=== PATIENT | female | born 1935 | race Caucasian/White ===

== ENCOUNTER 2018-03-25 20:05 | Inpatient (IN) | payer OTHER ==
[~2018-03-25] VITALS: Ht 162.6 cm; Wt 93.4 kg
[~2018-03-25 20:05] MED LIST: ATOR20 PO; Aspir-Low81 MG PO; CEPH500 PO; GINSENG COMPLE1 EACH PO; LOSA25 PO; Multiple Vitam1 EACH PO; OXYC5; PARO20 PO; SYNTHROID25 MCG PO
[2018-03-25 20:48] LABS: BASOPHILS ABSOLUTE AUTO 0.05 K/mm3 (0.00-0.23); BASOPHILS PERCENT AUTO 0 % (0-2); EOSINOPHILS ABSOLUTE AUTO 0.17 K/mm3 (0.00-0.68); EOSINOPHILS PERCENT AUTO 1 % (0-6); Hematocrit 45.7 % (33.0-51.0); IMMATURE GRAN ABSOLUTE AUTO 0.03 K/mm3 (0.00-0.10); IMMATURE GRAN PERCENT AUTO 0 % (0-1); LYMPHOCYTES ABSOLUTE AUTO 1.74 K/mm3 (0.84-5.20); LYMPHOCYTES PERCENT AUTO 14 % (21-46); MONOCYTES ABSOLUTE AUTO 0.85 K/mm3 (0.16-1.47); MONOCYTES PERCENT AUTO 7 % (4-13); Mean Corpuscular HGB 31.6 pg (26.0-34.0); Mean Corpuscular HGB Conc 32.8 g/dL (31.5-36.5); Mean Corpuscular Volume 96 fL (80-100); Mean Platelet Volume 9.6 fL (9.1-12.4); NEUTROPHILS ABSOLUTE AUTO 9.32 K/mm3 (1.96-9.15); NEUTROPHILS PERCENT AUTO 77 % (41-73); Platelet Count 324 K/mm3 (150-400); RDW Coefficient Variation 13.2 % (11.7-14.2); RDW Standard Deviation 47.8 fL (35.1-46.3); Red Blood Cell Count 4.74 M/mm3 (3.80-5.20); White Blood Cell Count 12.16 K/mm3 (4.00-11.30)
[2018-03-25 21:01] LABS: Source, Urine Clean Catch
[2018-03-25 21:06] LABS: Blood, Urine 1+ (Neg); Glucose Qualitative, Urine Neg (Neg); Ketones, Urine 1+ (Neg); Leukocyte Esterase, Urine 1+ (Neg); Nitrite, Urine Neg (Neg); Protein, Urine 2+ (Neg); Specific Gravity, Urine 1.025 (1.003-1.022); Urobilinogen, Urine 1+ (Normal)
[2018-03-25 21:14] LABS: Appearance, Urine Hazy (Clear); Bilirubin, Urine 1+ (Neg); Color, Urine Yellow (P-Yellow)
[2018-03-25 21:15] LABS: Red Blood Cells, Urine 0-2 /hpf (0-2); White Blood Cells, Urine 0-2 /hpf (0-5)
[2018-03-25 21:16] LABS: Bacteria Many /hpf; Hyaline Casts 0-2 /lpf (0-2); Squamous Epithelial Cells Many /hpf (Few)
[2018-03-25 21:23] LABS: Albumin, Blood 4.1 g/dL (3.4-5.0); Albumin/Globulin Ratio 0.9 (0.8-1.8); Bilirubin, Total 0.5 mg/dL (0.1-1.0); Bun/Creatinine Ratio 23.1 (12.0-20.0); Calcium, Blood 10.1 mg/dL (8.5-10.1); Creatinine, Blood 1.08 mg/dL (0.40-1.00); Globulin, Blood 4.6 g/dL (2.2-4.0); Potassium, Blood 4.3 mmol/L (3.5-5.5); Total Protein, Blood 8.7 g/dL (6.4-8.2)
[2018-03-26] MEDS ORDERED: LEVSOD50 PO (10:12)
[2018-03-26] MEDS ORDERED: Hair, Skin & N1 EACH PO (10:12)
[2018-03-26 10:13] LABS: Hematocrit 41.9 % (33.0-51.0); Hemoglobin 13.4 g/dL (11.5-16.0); Mean Corpuscular HGB 31.8 pg (26.0-34.0); Mean Platelet Volume 9.7 fL (9.1-12.4); Platelet Count 267 K/mm3 (150-400); RDW Coefficient Variation 13.5 % (11.7-14.2); Red Blood Cell Count 4.22 M/mm3 (3.80-5.20); White Blood Cell Count 7.49 K/mm3 (4.00-11.30)
[2018-03-26] MEDS ORDERED: [UNRECOGNIZED DRUG - OTHER] PO (10:13)
[2018-03-26 10:28] LABS: Albumin, Blood 3.4 g/dL (3.4-5.0); Albumin/Globulin Ratio 0.8 (0.8-1.8); Bilirubin, Total 0.4 mg/dL (0.1-1.0); Bun/Creatinine Ratio 22.7 (12.0-20.0); Calcium, Blood 9.2 mg/dL (8.5-10.1); Creatinine, Blood 0.97 mg/dL (0.40-1.00); Globulin, Blood 4.1 g/dL (2.2-4.0); Potassium, Blood 4.6 mmol/L (3.5-5.5); Total Protein, Blood 7.5 g/dL (6.4-8.2)
[2018-03-26 10:54] LABS: Mean Corpuscular Volume 99 fL (80-100)
[2018-03-27 04:57] LABS: BASOPHILS ABSOLUTE AUTO 0.01 K/mm3 (0.00-0.23); BASOPHILS PERCENT AUTO 0 % (0-2); EOSINOPHILS ABSOLUTE AUTO 0.25 K/mm3 (0.00-0.68); EOSINOPHILS PERCENT AUTO 5 % (0-6); Hemoglobin 12.1 g/dL (11.5-16.0); IMMATURE GRAN ABSOLUTE AUTO 0.02 K/mm3 (0.00-0.10); IMMATURE GRAN PERCENT AUTO 0 % (0-1); LYMPHOCYTES ABSOLUTE AUTO 1.19 K/mm3 (0.84-5.20); LYMPHOCYTES PERCENT AUTO 25 % (21-46); MONOCYTES ABSOLUTE AUTO 0.52 K/mm3 (0.16-1.47); MONOCYTES PERCENT AUTO 11 % (4-13); Mean Corpuscular HGB 31.8 pg (26.0-34.0); Mean Corpuscular HGB Conc 31.8 g/dL (31.5-36.5); Mean Corpuscular Volume 100 fL (80-100); NEUTROPHILS ABSOLUTE AUTO 2.86 K/mm3 (1.96-9.15); NEUTROPHILS PERCENT AUTO 59 % (41-73); Platelet Count 232 K/mm3 (150-400); RDW Coefficient Variation 13.4 % (11.7-14.2); RDW Standard Deviation 49.2 fL (35.1-46.3); Red Blood Cell Count 3.81 M/mm3 (3.80-5.20); White Blood Cell Count 4.85 K/mm3 (4.00-11.30)
[2018-03-27 05:17] LABS: Alanine Aminotransfer (ALT/SGP 16 U/L (12-78); Albumin, Blood 3.1 g/dL (3.4-5.0); Albumin/Globulin Ratio 0.9 (0.8-1.8); Alk Phos 56 U/L (50-136); Anion Gap 8 mmol/L (6-16); Aspartate Aminotrans (AST/SGOT 18 U/L (12-37); Bilirubin, Total 0.5 mg/dL (0.1-1.0); Blood Urea Nitrogen 15 mg/dL (8-24); Bun/Creatinine Ratio 17.4 (12.0-20.0); CO2, Blood 26 mmol/L (21-32); Calcium, Blood 8.6 mg/dL (8.5-10.1); Chloride, Blood 108 mmol/L (98-108); Creatinine, Blood 0.86 mg/dL (0.40-1.00); Globulin, Blood 3.5 g/dL (2.2-4.0); Glomerular Filtration Rate >60 (60-); Glucose, Blood 119 mg/dL (70-99); Potassium, Blood 3.9 mmol/L (3.5-5.5); Sodium, Blood 142 mmol/L (136-145); Total Protein, Blood 6.6 g/dL (6.4-8.2)
[2018-03-28] MEDS ORDERED: DOCU100 PO (12:35)
== END 2018-03-28 14:37 | disposition home or self-care (01) | DRG 389 ==
LOC: ER 20:05 → MEDS 03-26 00:21
PROVIDERS: Emergency Medicine; Internal Medicine
DX: K56.609 Unspecified intestinal obstruction, unspecified as to partial versus complete obstruction (principal); N17.9 Acute kidney failure, unspecified; I10 Essential (primary) hypertension; E03.9 Hypothyroidism, unspecified; Z79.82 Long term (current) use of aspirin; R73.9 Hyperglycemia, unspecified; R73.03 Prediabetes; E78.5 Hyperlipidemia, unspecified
CPT/HCPCS: 36415; 74176; 74250; 80053; 81001; 82947; 83036; 83690; 85025; 85027; 87086; 96361; 96374; 99285-25; J1650; J2405; J7030

== ENCOUNTER → 2018-10-31 | Outpatient (CLI) | payer OTHER ==
[~2018-10-31] MED LIST changes: +ASPI325 PO; +DOCU100 PO; +Hair, Skin & N1 EACH PO; +LEVSOD50 PO; +MIRALAX119 GM PO; +ONDA4 PO; +TRAM50 PO; +[UNRECOGNIZED DRUG - OTHER] PO
== END | disposition home or self-care (01) ==
LOC: LAB 11:53 → LAB SHORT 11:53
DX: D04.39 Carcinoma in situ of skin of other parts of face (principal)
CPT/HCPCS: 88305

== ENCOUNTER 2020-10-15 11:39 | Emergency (ER) | payer OTHER ==
[~2020-10-15] VITALS: Ht 162.6 cm; Wt 98.0 kg
[~2020-10-15 11:39] MED LIST changes: +LEVSOD25 PO; -LEVSOD50 PO
[2020-10-15] MEDS ORDERED: ELIQUIS5 M2 PO (13:32)
== END 2020-10-15 13:30 | disposition home or self-care (01) ==
LOC: ER 11:39
DX: I82.811 Embolism and thrombosis of superficial veins of right lower extremity (principal); I82.401 Acute embolism and thrombosis of unspecified deep veins of right lower extremity; I10 Essential (primary) hypertension; E03.9 Hypothyroidism, unspecified; Z79.82 Long term (current) use of aspirin; Z79.899 Other long term (current) drug therapy; Z88.2 Allergy status to sulfonamides; Z91.09 Other allergy status, other than to drugs and biological substances; Z88.5 Allergy status to narcotic agent
CPT/HCPCS: 99283

== ENCOUNTER 2020-10-27 08:46 | Day surgery (SDC) | payer OTHER ==
[~2020-10-27] VITALS: Ht 162.6 cm; Wt 97.9 kg
[~2020-10-27 08:46] MED LIST changes: +ELIQUIS5 M2 PO
[2020-10-27] MEDS ORDERED: ELIQUIS2.5 MG PO (09:39)
--- NOTE | 2020-10-27 11:44 | NUR ---
10/27/20 1144 Linda Diaz S PT. DENIED ANY PAIN BUT WHILE WALKING OUT TO CAR PT. VERBALIZED HAVING SOME CRAMPING & STATED "THAT'S PROBABLY NORMAL." PT. VERBALIZED IT BEING TOLERABLE. PT. INSTRUCTED THAT IT WAS PROBABLY SOME AIR IN HER COLON & EVENTUALLY IT WOULD ABSORB & SHE COULD JUST PASS OUT AIR IF FELT THE NEED.
== END 2020-10-27 11:15 | disposition home or self-care (01) ==
LOC: ORSCSDS 08:46
PROVIDERS: Surgery
PROC: 0DBH8ZX Excision of Cecum, Via Natural or Artificial Opening Endoscopic, Diagnostic (ICD-10-PCS; principal; 2020-10-27 10:30)
PROC: 0DBL8ZX Excision of Transverse Colon, Via Natural or Artificial Opening Endoscopic, Diagnostic (ICD-10-PCS; principal; 2020-10-27 10:30)
PROC: 0DBM8ZX Excision of Descending Colon, Via Natural or Artificial Opening Endoscopic, Diagnostic (ICD-10-PCS; principal; 2020-10-27 10:30)
DX: R19.4 Change in bowel habit (principal); K52.9 Noninfective gastroenteritis and colitis, unspecified; R10.30 Lower abdominal pain, unspecified; K21.9 Gastro-esophageal reflux disease without esophagitis; E11.9 Type 2 diabetes mellitus without complications; E78.5 Hyperlipidemia, unspecified; I10 Essential (primary) hypertension; E03.9 Hypothyroidism, unspecified; F41.8 Other specified anxiety disorders; E66.01 Morbid (severe) obesity due to excess calories; Z68.37 Body mass index [BMI] 37.0-37.9, adult; Z79.899 Other long term (current) drug therapy; G47.33 Obstructive sleep apnea (adult) (pediatric); Z79.01 Long term (current) use of anticoagulants
CPT/HCPCS: 82947; 88305; J2704

== ENCOUNTER 2020-11-15 05:56 | Inpatient (IN) | payer OTHER ==
[~2020-11-15] VITALS: Ht 162.6 cm; Wt 99.7 kg
[~2020-11-15 05:56] MED LIST changes: +ELIQUIS2.5 MG PO
[2020-11-15 06:28] LABS: BASOPHILS ABSOLUTE AUTO 0.03 K/mm3 (0.00-0.23); BASOPHILS PERCENT AUTO 0 % (0-2); EOSINOPHILS ABSOLUTE AUTO 0.23 K/mm3 (0.00-0.68); EOSINOPHILS PERCENT AUTO 3 % (0-6); Hematocrit 41.7 % (33.0-51.0); Hemoglobin 13.8 g/dL (11.5-16.0); IMMATURE GRAN ABSOLUTE AUTO 0.03 K/mm3 (0.00-0.10); IMMATURE GRAN PERCENT AUTO 0 % (0-1); LYMPHOCYTES ABSOLUTE AUTO 1.44 K/mm3 (0.84-5.20); LYMPHOCYTES PERCENT AUTO 16 % (21-46); MONOCYTES ABSOLUTE AUTO 0.73 K/mm3 (0.16-1.47); MONOCYTES PERCENT AUTO 8 % (4-13); Mean Corpuscular HGB 32.7 pg (26.0-34.0); Mean Corpuscular HGB Conc 33.1 g/dL (31.5-36.5); Mean Corpuscular Volume 99 fL (80-100); Mean Platelet Volume 10.1 fL (9.1-12.4); NEUTROPHILS ABSOLUTE AUTO 6.53 K/mm3 (1.96-9.15); NEUTROPHILS PERCENT AUTO 73 % (41-73); Platelet Count 255 K/mm3 (150-400); RDW Coefficient Variation 13.3 % (11.7-14.2); RDW Standard Deviation 48.1 fL (35.1-46.3); Red Blood Cell Count 4.22 M/mm3 (3.80-5.20); White Blood Cell Count 8.99 K/mm3 (4.00-11.30)
[2020-11-15 06:42] LABS: Albumin, Blood 3.8 g/dL (3.4-5.0); Albumin/Globulin Ratio 0.9 (0.8-1.8); Bilirubin, Total 0.5 mg/dL (0.1-1.0); Bun/Creatinine Ratio 19.4 (12.0-20.0); Calcium, Blood 9.8 mg/dL (8.5-10.1); Creatinine, Blood 0.98 mg/dL (0.40-1.00); Globulin, Blood 4.2 g/dL (2.2-4.0)
--- NOTE | 2020-11-15 13:55 | NUR ---
PT ARRIVED AT AT 1300. PT HAD IMMEDIATE EMESIS OF 400ML UPON ARRIVAL, CONNECTED NG TO LOW INT SUCTION WITH RETURN OF 400ML WITHIN 20 MINUTES. PT DENIES PAIN AND DENIES NAUSEA ONCE RECONNECTED AND EMESIS OCCURED. SHE IS CURRENTLY RESTING IN BED WITH CALL LIGHT IN PLACE. PLACED ON 3L NASAL CANULA, PT DESATS WHILE SLEEPING ON 2L CURRENTLY AT 94%, CONT BIOX IN PLACE. PT IS AA0X4, ORIENTED TO UNIT. CALL LIGHT IN REACH.
--- NOTE | 2020-11-15 16:29 | NUR ---
NO ACUTE CHANGES SINCE ARRIVAL TO UNIT PT REPORTS NAUSEA AND PAIN BETTER SINCE NG TUBE RECONNECTED. DAUGHTER AT BEDSIDE. PT REQUESTS THAT ONE OF HER DAUGHTERS BE PRESENT WHILE SPEAKING TO PROVIDERS TO HELP WITH UNDERSTANDING. PT HAS BEEN SLEEPING FREQUENTLY DURING SHIFT, REMAINS ON 3L VIA NC WITH OCCASIONAL APNIC PERIODS.
--- NOTE | 2020-11-16 04:23 | NUR ---
SHIFT SUMMARY PT CONTINUES TO DENY ABD PAIN AND NAUSEA. NGT WITH 350 CC DARK BROWN LIQ OUTPUT. ABD STILL MODERATELY DISTENDED AND FIRM. NPO AND IVF INFUSING PER ORDERS. 1 ASSIST TO RESTROOM. 2L VIA NC TO MAINTAIN SATS ABOVE 90% WHILE SLEEPING. CONT BIOX IN PLACE. CALL LIGHT WITHIN REACH.
[2020-11-16 04:53] LABS: Hematocrit 42.5 % (33.0-51.0); Hemoglobin 13.7 g/dL (11.5-16.0); Mean Corpuscular HGB 32.5 pg (26.0-34.0); Mean Corpuscular HGB Conc 32.2 g/dL (31.5-36.5); Mean Corpuscular Volume 101 fL (80-100); Mean Platelet Volume 10.3 fL (9.1-12.4); Platelet Count 224 K/mm3 (150-400); RDW Coefficient Variation 13.8 % (11.7-14.2); RDW Standard Deviation 50.9 fL (35.1-46.3); Red Blood Cell Count 4.21 M/mm3 (3.80-5.20); White Blood Cell Count 4.72 K/mm3 (4.00-11.30)
[2020-11-16 05:02] LABS: International Normalized Ratio 0.97; Prothrombin Time Results 10.5 Sec (9.7-11.5)
[2020-11-16 05:12] LABS: Alanine Aminotransfer (ALT/SGP 24 U/L (12-78); Albumin, Blood 3.4 g/dL (3.4-5.0); Albumin/Globulin Ratio 0.8 (0.8-1.8); Alk Phos 61 U/L (50-136); Anion Gap 4 mmol/L (6-16); Aspartate Aminotrans (AST/SGOT 17 U/L (12-37); Bilirubin, Total 0.4 mg/dL (0.1-1.0); Blood Urea Nitrogen 18 mg/dL (8-24); CO2, Blood 27 mmol/L (21-32); Calcium, Blood 8.9 mg/dL (8.5-10.1); Chloride, Blood 108 mmol/L (98-108); Globulin, Blood 4.2 g/dL (2.2-4.0); Glomerular Filtration Rate >60 (60-); Glucose, Blood 201 mg/dL (70-99); Potassium, Blood 4.5 mmol/L (3.5-5.5); Sodium, Blood 139 mmol/L (136-145); Total Protein, Blood 7.6 g/dL (6.4-8.2)
[2020-11-16 07:38] LABS: BAND PERCENT MAN 14 % (0-8); BASOPHILS PERCENT MAN 0 % (0-2); EOSINOPHILS ABSOLUTE MAN 0.04 K/mm3 (0.00-0.68); EOSINOPHILS PERCENT MAN 1 % (0-6); LYMPHOCYTES ABSOLUTE MAN 0.66 K/mm3 (0.84-5.20); LYMPHOCYTES PERCENT MAN 14 % (21-46); MONOCYTES ABSOLUTE MAN 0.94 K/mm3 (0.16-1.47); MONOCYTES PERCENT MAN 20 % (4-13); NEUTROPHILS ABSOLUTE MAN 3.06 K/mm3 (1.96-9.15); SEG NEUTROPHILS PERCENT MAN 51 % (41-73); TOTAL CELLS COUNTED 100
--- NOTE | 2020-11-16 18:26 | NUR ---
SHIFT SUMMARY PT HAS BEEN INTERMITTENTLY CONFUSED DURING SHIFT. WILL ASK QUESTIONS THAT HAVE JUST BEEN ANSWERED AND ANSWERS SOME QUESTIONS INAPPROPRIATLY AT TIMES. SHE ATTEMPTS TO GET OOB WITHOUT USING CALL LIGHT AND HAS ASKED WHY SHE IS HERE. CONFUSION HAS BEEN INCREASING THIS EVENING SINCE DAUGHTER LEFT. DAUGHTERS REQUEST TO BE IN TO SEE PATIENT MORE AND HELP KEEP HER ORIENTED. SHE HAS HAD 375 OUT OF CLEAR BROWN FLUID WITH SOME BROWN CHUNKS IN NG TUBE. PT UP TO BSC AND VOIDS. NO FLATUS OR BM AT THIS TIME, FLUIDS INFUSING PER EMAR. PT MEDICATED FOR PAIN X1. PLAN IS TO CONTINUE WITH NPO AND AWAIT RETURN OF BOWEL FUNCTION.
--- NOTE | 2020-11-17 04:13 | NUR ---
SHIFT SUMMARY MEDICATED X1 THIS SHIFT FOR MILD ABD PAIN. PT DENIES FLATUS, BUT DOES REPORT BURPING. MINIMAL BROWN LIQ OUTPUT IN NGT. ABD REMAINS MODERATELY DISTENDED AND FIRM. 1 ASSIST TO BSC. IVF INFUSING PER ORDERS. PLAN TO CONT BOWEL REST.
[2020-11-17 05:10] LABS: Hematocrit 41.6 % (33.0-51.0); Hemoglobin 13.3 g/dL (11.5-16.0); Mean Corpuscular HGB 32.4 pg (26.0-34.0); Mean Corpuscular Volume 102 fL (80-100); Mean Platelet Volume 10.2 fL (9.1-12.4); Platelet Count 202 K/mm3 (150-400); RDW Coefficient Variation 13.6 % (11.7-14.2); RDW Standard Deviation 51.8 fL (35.1-46.3); White Blood Cell Count 3.09 K/mm3 (4.00-11.30)
[2020-11-17 05:34] LABS: Alanine Aminotransfer (ALT/SGP 18 U/L (12-78); Albumin, Blood 3.2 g/dL (3.4-5.0); Albumin/Globulin Ratio 0.8 (0.8-1.8); Alk Phos 51 U/L (50-136); Anion Gap 3 mmol/L (6-16); Aspartate Aminotrans (AST/SGOT 9 U/L (12-37); Bilirubin, Total 0.4 mg/dL (0.1-1.0); Blood Urea Nitrogen 18 mg/dL (8-24); Bun/Creatinine Ratio 21.2 (12.0-20.0); CO2, Blood 31 mmol/L (21-32); Calcium, Blood 8.7 mg/dL (8.5-10.1); Chloride, Blood 108 mmol/L (98-108); Creatinine, Blood 0.85 mg/dL (0.40-1.00); Globulin, Blood 4.1 g/dL (2.2-4.0); Glomerular Filtration Rate >60 (60-); Glucose, Blood 195 mg/dL (70-99); Magnesium, Blood 1.9 mg/dL (1.6-2.4); Phosphorus, Blood 2.3 mg/dL (2.5-4.9); Potassium, Blood 4.1 mmol/L (3.5-5.5); Sodium, Blood 142 mmol/L (136-145); Total Protein, Blood 7.3 g/dL (6.4-8.2)
[2020-11-17 06:36] LABS: BAND PERCENT MAN 19 % (0-8); BASOPHILS PERCENT MAN 0 % (0-2); EOSINOPHILS ABSOLUTE MAN 0.03 K/mm3 (0.00-0.68); EOSINOPHILS PERCENT MAN 1 % (0-6); LYMPHOCYTES ABSOLUTE MAN 0.67 K/mm3 (0.84-5.20); LYMPHOCYTES PERCENT MAN 22 % (21-46); MONOCYTES ABSOLUTE MAN 0.67 K/mm3 (0.16-1.47); MONOCYTES PERCENT MAN 22 % (4-13); NEUTROPHILS ABSOLUTE MAN 1.69 K/mm3 (1.96-9.15); SEG NEUTROPHILS PERCENT MAN 36 % (41-73); TOTAL CELLS COUNTED 100
--- NOTE | 2020-11-17 07:31 | NUR ---
pt sleeping snoring
--- NOTE | 2020-11-17 09:10 | NUR ---
pt back from small bowel follow thru zofran given held the po meds pt denies flatus abd dist tight hypo bt's to keep ngt clamped until 1300
--- NOTE | 2020-11-17 09:52 | NUR ---
pt visiting with daughter
--- NOTE | 2020-11-17 10:20 | NUR ---
pt had lg emesis around the ngt est 700 ml pt stated the pain is better 3/10
--- NOTE | 2020-11-17 12:12 | NUR ---
pt reporting inc anxiety wanting to walk in hallway
--- NOTE | 2020-11-17 15:33 | NUR ---
pt had some leaking from the end of the ngt re fixed and cleaned up talked with family re test and pt stated she is still feeling ok
--- NOTE | 2020-11-17 18:02 | NUR ---
earlier pt back fro 2nd abd xray of follow thru had another lg emesis around the ngt est 1000 ml put back to sx had 500 out into the cannister family awaiting dr mcnulty 0.5 mg dilaudid given for pain pt resting
--- NOTE | 2020-11-17 19:20 | NUR ---
talked with pt and her daughter re talking with dr mcnulty he will be by in the am after her abd xray with results
--- NOTE | 2020-11-18 07:18 | NUR ---
SHIFT SUMMARY S/P SBO, A/O W/ PERIODIC SEMI CONFUSED STATES WHEN WAKING UP, REORIENTS WELL, MOD ABD DISTENTION BUT APPEARS TO BE IMPROVING, SMALL BM THIS SHIFT, VOIDING WELL, PT NPO T/O THE SHIFT, DENIES PAIN. NO ACUTE EVENTS THIS SHIFT. CALL LIGHT IN REACH, BED ALARM ON DUE TO PT BEING IMPULSIVE AND HAVING MULTIPLE LINES/TUBES/CORDS. REPORT GIVEN TO DAY RN.
--- NOTE | 2020-11-18 14:05 | NUR ---
1210 NG CLAMPED PER ORDER
--- NOTE | 2020-11-18 17:42 | NUR ---
summary pt denies any nausea or abd pain, adelina clear liquids. NG clamped. pt one person assist to bathroom, has had liquid brown stools.
--- NOTE | 2020-11-19 04:36 | NUR ---
SHIFT SUMMARY PT ADMITTED FOR SBO, NON SURGICAL. NO ACUTE CHANGES OVERNIGHT. PT DENIES ABD PAIN BUT HAD SOME TYLENOL AT BEDTIME FOR COMFORT. PT TOLERATING PO INTAKE, DENIES NAUSEA AND VOMITING. ABD REMAIN MODERATELY DISTENDED AND NON TENDER. NORM ACTIVE BT. PT HAD 3 (SMALL) LIQ GREEN BM T/O SHIFT. USES BSC W/ 1 PERSON ASSIT TO ASSIST WITH LINES/NG TUBES. NG TUBE REMAIN CLAMPED OVERNIGHT, INTACT. AOX3. USE CALL LIGHT APPROPRIATELY AND ANS QUESTIONS APPROPRIATELY. SHE SLEPT MOST OF THE NIGHT. USES 2-5L 02 T/O SHIFT. CONTINIOUS BIOX IN PLACED. HX SLEEP APNEA. CALL LIGHT WITHIN REACH. WILL CONTINUE TO MONITOR AND PASS REPORT TO ONCOMING NURSE.
[2020-11-19 04:51] LABS: Hematocrit 38.9 % (33.0-51.0); Hemoglobin 12.4 g/dL (11.5-16.0); Mean Corpuscular HGB 32.3 pg (26.0-34.0); Mean Corpuscular HGB Conc 31.9 g/dL (31.5-36.5); Mean Corpuscular Volume 101 fL (80-100); Mean Platelet Volume 10.1 fL (9.1-12.4); Platelet Count 187 K/mm3 (150-400); RDW Coefficient Variation 13.5 % (11.7-14.2); RDW Standard Deviation 50.7 fL (35.1-46.3); Red Blood Cell Count 3.84 M/mm3 (3.80-5.20); White Blood Cell Count 6.15 K/mm3 (4.00-11.30)
[2020-11-19 05:47] LABS: Anion Gap 4 mmol/L (6-16); Blood Urea Nitrogen 25 mg/dL (8-24); Bun/Creatinine Ratio 32.2 (12.0-20.0); CO2, Blood 31 mmol/L (21-32); Calcium, Blood 8.8 mg/dL (8.5-10.1); Chloride, Blood 105 mmol/L (98-108); Creatinine, Blood 0.78 mg/dL (0.40-1.00); Glomerular Filtration Rate >60 (60-); Glucose, Blood 190 mg/dL (70-99); Potassium, Blood 3.2 mmol/L (3.5-5.5); Sodium, Blood 140 mmol/L (136-145)
[2020-11-19 06:31] LABS: BAND PERCENT MAN 5 % (0-8); BASOPHILS ABSOLUTE MAN 0.06 K/mm3 (0.00-0.23); BASOPHILS PERCENT MAN 1 % (0-2); EOSINOPHILS PERCENT MAN 5 % (0-6); LYMPHOCYTES ABSOLUTE MAN 1.16 K/mm3 (0.84-5.20); LYMPHOCYTES PERCENT MAN 19 % (21-46); MONOCYTES ABSOLUTE MAN 0.49 K/mm3 (0.16-1.47); MONOCYTES PERCENT MAN 8 % (4-13); MYELOCYTE ABSOLUTE MAN 0.06 K/mm3 (0.00-0.00); MYELOCYTE PERCENT MAN 1 % (0-0); NEUTROPHILS ABSOLUTE MAN 4.05 K/mm3 (1.96-9.15); SEG NEUTROPHILS PERCENT MAN 61 % (41-73); TOTAL CELLS COUNTED 100
--- NOTE | 2020-11-19 10:54 | NUR ---
DR. BASS TELEPHONED AND SAID IT WAS OKAY FOR THE PATIENTS NG TUBE TO COME OUT. PATIENTS NG TUBE CAME OUT AND WAS WNL. PATIENT TOLERATED IT WELL. SHE IS CURRENTLY LAYING IN BED WITH CALL LIGHT IN REACH.
[2020-11-19] MEDS ORDERED: Acetaminophen650 M1 PO (12:34)
--- NOTE | 2020-11-19 12:46 | NUR ---
DISCHARGE NOTE: PATIENT AND PATIENTS DAUGHTER WERE EDUCATED ON DISCHARGE INSTRUCTIONS. PATIENT AND DAUGHTER BOTH VERBALIZED UNDERSTANDING OF INSTRUCTIONS. NEITHER OF THEM HAD FURTHER QUESTIONS. PATIENT IS ALERT AND ORIENTED X4. VS ARE WNL AND IS ON RA. PATIENTS PAIN IS MANAGED WITH PO TYLENOL. SHE HAS VOIDED AND HAD A FEW BOWEL MOVEMENTS. PATIENT IS TOLERATING PO INTAKE WELL. SHE IS GATHERING HER ITEMS IN HER ROOM AND IS GETTING DRESSED FOR DISCHARGE. IV WAS TAKEN OUT AND WAS WNL. PATIENT WILL BE WHEELCHAIRED OUT TO ANOTHER FAMILY [employer] CAR WHO WILL DRIVE HER HOME. PATIENT STATED SHE WILL USE THE CALL LIGHT WHEN READY TO LEAVE AND HER RIDE IS HERE.
== END 2020-11-19 13:00 | disposition home health service (06) | DRG 389 ==
LOC: ER 05:56 → SURS 11:02
PROVIDERS: Emergency Medicine; Family Medicine; Internal Medicine; Nurse Practitioner Acute Care; ADMIT Internal Medicine
PROC: 0D9670Z Drainage of Stomach with Drainage Device, Via Natural or Artificial Opening (ICD-10-PCS; principal; 2020-11-15)
DX: K56.600 Partial intestinal obstruction, unspecified as to cause (principal); I82.811 Embolism and thrombosis of superficial veins of right lower extremity; I10 Essential (primary) hypertension; M54.40 Lumbago with sciatica, unspecified side; E03.9 Hypothyroidism, unspecified; R73.9 Hyperglycemia, unspecified; K59.00 Constipation, unspecified; G47.33 Obstructive sleep apnea (adult) (pediatric); I16.0 Hypertensive urgency; Z96.641 Presence of right artificial hip joint; Z91.19 Patient's noncompliance with other medical treatment and regimen; Z98.49 Cataract extraction status, unspecified eye; Z90.49 Acquired absence of other specified parts of digestive tract; Z98.890 Other specified postprocedural states; Z88.2 Allergy status to sulfonamides; Z88.5 Allergy status to narcotic agent; Z91.040 Latex allergy status; Z91.048 Other nonmedicinal substance allergy status; Z79.01 Long term (current) use of anticoagulants; Z79.899 Other long term (current) drug therapy; Z88.6 Allergy status to analgesic agent
CPT/HCPCS: 36415; 74177; 74250; 80048; 80053; 83690; 83735; 84100; 85025; 85610; 93005; 93010; 94762; 96374-59; 96375; 96376; 97116; 97162; 97530; 99285-25; A9270; J0360; J1170; J2270; J2405; J3010; J7030; Q9967

== ENCOUNTER 2020-12-23 08:32 | Day surgery (SDC) | payer OTHER ==
[~2020-12-23] VITALS: Ht 162.6 cm; Wt 94.0 kg
[~2020-12-23 08:32] MED LIST changes: +Acetaminophen650 M1 PO
--- NOTE | 2020-12-23 09:17 | NUR ---
Ambulatory in Day Surgery History, Chart, Medications and Allergies reviewed before start of procedure. Lungs clear T/O to Auscultation. Patient confirms NPO status and agrees with scheduled surgery. Pre-Op teaching done. Pt verbalizes understanding. Patient States Post-Procedure ride home has been arranged.
--- NOTE | 2020-12-23 14:23 | NUR ---
PATIENT REPORTS 0/10 PAIN, LOWER ABDOMEN "BURNING". ONE NORCO PO GIVEN PER ORDERS AND ICE PACK PROVIDED AND ABDOMINAL BINDER.
--- NOTE | 2020-12-23 14:25 | NUR ---
Discharge instructions reviewed with patient. Patient verbalizes understanding. Copy given to patient to take home. Discharged via wheelchair to private car for ride home. ALL BELONGINGS RETURNED TO PATIENTS, INCLUDING GLASSES.
== END 2020-12-23 23:00 | disposition home or self-care (01) ==
LOC: ORSCMMR 08:32
PROVIDERS: Surgery
PROC: 0WQF0ZZ Repair Abdominal Wall, Open Approach (ICD-10-PCS; principal; 2020-12-23 10:00)
DX: K43.2 Incisional hernia without obstruction or gangrene (principal); I10 Essential (primary) hypertension; G47.33 Obstructive sleep apnea (adult) (pediatric); K21.9 Gastro-esophageal reflux disease without esophagitis; E11.9 Type 2 diabetes mellitus without complications; E03.9 Hypothyroidism, unspecified; E66.9 Obesity, unspecified; Z68.35 Body mass index [BMI] 35.0-35.9, adult; Z79.899 Other long term (current) drug therapy
CPT/HCPCS: 82947; A9270; J0690; J1100; J2250; J2370; J2405; J2704; J3010; J7120

== ENCOUNTER → 2021-05-22 | Outpatient (CLI) | payer OTHER ==
[2021-05-22 14:13] LABS: Bun/Creatinine Ratio 18.6 (12.0-20.0); Calcium, Blood 9.6 mg/dL (8.5-10.1); Creatinine, Blood 1.02 mg/dL (0.40-1.00); Potassium, Blood 4.5 mmol/L (3.5-5.5)
== END | disposition home or self-care (01) ==
LOC: LAB SHORT 13:52
PROVIDERS: Physician Assistant Medical
DX: M25.519 Pain in unspecified shoulder (principal)
CPT/HCPCS: 80048; 82550; 85651

== ENCOUNTER 2021-06-02 03:55 | Inpatient (IN) | payer OTHER ==
[~2021-06-02] VITALS: Ht 254 cm; Wt 94.7 kg
[2021-06-02] MEDS ORDERED: PRED5 PO (04:11)
[2021-06-02 04:26] LABS: BASOPHILS ABSOLUTE AUTO 0.03 K/mm3 (0.00-0.23); BASOPHILS PERCENT AUTO 0 % (0-2); EOSINOPHILS ABSOLUTE AUTO 0.13 K/mm3 (0.00-0.68); EOSINOPHILS PERCENT AUTO 1 % (0-6); Hematocrit 44.9 % (33.0-51.0); IMMATURE GRAN ABSOLUTE AUTO 0.04 K/mm3 (0.00-0.10); IMMATURE GRAN PERCENT AUTO 0 % (0-1); LYMPHOCYTES PERCENT AUTO 25 % (21-46); MONOCYTES ABSOLUTE AUTO 0.96 K/mm3 (0.16-1.47); MONOCYTES PERCENT AUTO 9 % (4-13); Mean Corpuscular HGB 32.1 pg (26.0-34.0); Mean Corpuscular HGB Conc 33.4 g/dL (31.5-36.5); Mean Corpuscular Volume 96 fL (80-100); NEUTROPHILS PERCENT AUTO 65 % (41-73); Platelet Count 259 K/mm3 (150-400); RDW Coefficient Variation 13.6 % (11.7-14.2); RDW Standard Deviation 48.6 fL (35.1-46.3); Red Blood Cell Count 4.67 M/mm3 (3.80-5.20); White Blood Cell Count 11.36 K/mm3 (4.00-11.30)
[2021-06-02 04:41] LABS: Albumin, Blood 3.6 g/dL (3.4-5.0); Albumin/Globulin Ratio 0.8 (0.8-1.8); Bilirubin, Total 0.7 mg/dL (0.1-1.0); Bun/Creatinine Ratio 25.7 (12.0-20.0); Calcium, Blood 10.3 mg/dL (8.5-10.1); Creatinine, Blood 0.97 mg/dL (0.40-1.00); Globulin, Blood 4.5 g/dL (2.2-4.0); Total Protein, Blood 8.1 g/dL (6.4-8.2)
[2021-06-02 05:25] LABS: Source, Urine Clean Catch
[2021-06-02 05:31] LABS: Bilirubin, Urine Neg (Neg); Blood, Urine Neg (Neg); Glucose Qualitative, Urine Neg (Neg); Ketones, Urine Neg (Neg); Leukocyte Esterase, Urine Neg (Neg); Nitrite, Urine Neg (Neg); Protein, Urine 2+ (Neg); Specific Gravity, Urine 1.015 (1.003-1.022); Urobilinogen, Urine NORM (Normal)
[2021-06-02 05:37] LABS: Appearance, Urine Clear (Clear); Color, Urine Yellow (P-Yellow)
[2021-06-02 05:39] LABS: Bacteria Few /hpf; Red Blood Cells, Urine 0-2 /hpf (0-2); Squamous Epithelial Cells Many /hpf (Few); White Blood Cells, Urine 0-2 /hpf (0-5)
--- NOTE | 2021-06-02 14:31 | NUR ---
DAUGHTER AT BEDSIDE. WENT TO PLACE DNR WRIST BAND ON PATIENT. PT EXPRESSED THAT THEY WOULD LIKE TO HAVE CPR IF NEEDED BUT WOULD NOT LIKE TO BE PLACED ON CLIENT EVALUATOR LIFE SUPPORT. [facility] STATUS CHANGED PER PT'S WISHES.
--- NOTE | 2021-06-02 18:03 | NUR ---
SHIFT SUMMARY PT ADMITTED FOR SBO VS ILEUS. PAIN IN HER ABD AND NAUSEA IN THE ED. NG TUBE INSERTED INTO HER L NOSTRIL WHICH SHE IS TOLERATING WELL. PT REPORTS NO PAIN OR NAUSEA SINCE HAVING THE NG TUBE INSERTED. OUTPUT FROM NG HAS TURNED FROM GREEN TO BROWN. SMALL BOWEL FOLLOW THROUGH SCHEDULED FOR THE AM. VSS. WILL REPORT TO SAKINA URIAS.
[2021-06-03 04:16] LABS: Hematocrit 43.2 % (33.0-51.0); Hemoglobin 13.9 g/dL (11.5-16.0); Mean Corpuscular HGB 32.4 pg (26.0-34.0); Mean Corpuscular HGB Conc 32.2 g/dL (31.5-36.5); Mean Platelet Volume 9.9 fL (9.1-12.4); Platelet Count 219 K/mm3 (150-400); RDW Standard Deviation 51.8 fL (35.1-46.3); Red Blood Cell Count 4.29 M/mm3 (3.80-5.20); White Blood Cell Count 7.07 K/mm3 (4.00-11.30)
[2021-06-03 04:24] LABS: Mean Corpuscular Volume 101 fL (80-100)
[2021-06-03 04:37] LABS: Bun/Creatinine Ratio 27.9 (12.0-20.0); Calcium, Blood 9.2 mg/dL (8.5-10.1); Creatinine, Blood 0.97 mg/dL (0.40-1.00); Potassium, Blood 4.1 mmol/L (3.5-5.5)
--- NOTE | 2021-06-03 16:31 | NUR ---
NG TUBE DC'D AT THIS TIME. PT TOLERATED WELL.
--- NOTE | 2021-06-03 16:50 | NUR ---
SHIFT SUMMARY PT RECEIVED SMALL BOWEL FOLLOW THROUGH THIS AM. NO BLOCKAGE WAS FOUND AND THE PT HAD A LARGE BM. NG TUBE DC'D AND THE PATIENT IS TOLERATING A CLEAR LIQUID DIET AT THIS TIME. NO C/O NAUSEA OR PAIN. WILL POSSIBLY DC TOMORROW. VSS. WILL REPORT TO SAKINA URIAS.
--- NOTE | 2021-06-04 05:09 | NUR ---
SHIFT SUMMARY ROLF IS TOLERATING CLEAR LIQUID DIET, ESPECIALLY ICE CHIPS. DENIES ABD PAIN OR NAUSEA. SMALL BOWEL FOLLOW THROUGH PERFORMED TODAY, NO OBSTRUCTION NOTED. PT WITH HX OF DVT, WEARING SCD'S FOR PROPHYLAXIS. ROOM AIR. IV IN RIGHT HAND WNL, INFUSING. WILL CALL FOR ASSISTANCE WHEN NEEDED. PLEASANT WITH STAFF. WILL CONTINUE TO MONITOR.
--- NOTE | 2021-06-04 14:31 | NUR ---
DISHCARGE SUMMARY PT A/O X4, VSS, TOLERATING DIET, DISCUSSED DISCHARGE INFORMATION c PT AND ANSWERED ALL QUESTIONS, PROVIDED PRIMARY CARE CONTACT FOR FOLLOW UP WELL CONTACT INFORMATION HERE SHOULD ADDITIONAL QUESTIONS ARISE. IV ACCESS REMOVED AND NO OTHER IV ACCESS DEVICES IN PLACE. PT ESCORTED OUT VIA WC AND DRIVEN HOME BY HER DAUGHTER WITH ALL HER PERSONAL POSSESSIONS.
== END 2021-06-04 14:23 | disposition home or self-care (01) | DRG 390 ==
LOC: ER 03:55 → ERHOLD 06:16 → SURS 06:16
PROVIDERS: Internal Medicine; Student in an Organized Health Care Education/Training Program; ADMIT Family Medicine
DX: K56.690 Other partial intestinal obstruction (principal); E03.9 Hypothyroidism, unspecified; I10 Essential (primary) hypertension; M35.3 Polymyalgia rheumatica; Z66 Do not resuscitate; Z88.2 Allergy status to sulfonamides; Z91.040 Latex allergy status; Z90.49 Acquired absence of other specified parts of digestive tract; Z98.890 Other specified postprocedural states; Z98.49 Cataract extraction status, unspecified eye; Z79.899 Other long term (current) drug therapy; Z79.82 Long term (current) use of aspirin; K21.9 Gastro-esophageal reflux disease without esophagitis; D72.828 Other elevated white blood cell count
CPT/HCPCS: 36415; 71045; 74177; 74250; 80048; 80053; 81001; 83690; 85025; 85027; 87086; 93005; 93010; 96374; 96375; 99285-25; C9113; J2270; J2405; J3010; J7030; Q9967

== ENCOUNTER → 2021-09-18 | Outpatient (CLI) | payer OTHER ==
[~2021-09-18] MED LIST changes: +PRED5 PO
== END | disposition home or self-care (01) ==
LOC: LAB SHORT 16:05 → LAB 16:05
DX: L03.011 Cellulitis of right finger (principal)
CPT/HCPCS: 87070; 87077; 87147; 87186; 87205

== ENCOUNTER 2021-10-03 10:04 | Emergency (ER) | payer OTHER ==
[~2021-10-03] VITALS: Ht 160 cm; Wt 90.7 kg
[2021-10-03 11:19] LABS: BASOPHILS ABSOLUTE AUTO 0.02 K/mm3 (0.00-0.23); BASOPHILS PERCENT AUTO 0 % (0-2); EOSINOPHILS ABSOLUTE AUTO 0.18 K/mm3 (0.00-0.68); EOSINOPHILS PERCENT AUTO 3 % (0-6); Hematocrit 37.6 % (33.0-51.0); Hemoglobin 12.3 g/dL (11.5-16.0); IMMATURE GRAN ABSOLUTE AUTO 0.01 K/mm3 (0.00-0.10); IMMATURE GRAN PERCENT AUTO 0 % (0-1); LYMPHOCYTES ABSOLUTE AUTO 1.13 K/mm3 (0.84-5.20); LYMPHOCYTES PERCENT AUTO 20 % (21-46); MONOCYTES ABSOLUTE AUTO 0.62 K/mm3 (0.16-1.47); MONOCYTES PERCENT AUTO 11 % (4-13); Mean Corpuscular HGB 32.3 pg (26.0-34.0); Mean Corpuscular HGB Conc 32.7 g/dL (31.5-36.5); Mean Corpuscular Volume 99 fL (80-100); Mean Platelet Volume 9.8 fL (9.1-12.4); NEUTROPHILS ABSOLUTE AUTO 3.78 K/mm3 (1.96-9.15); NEUTROPHILS PERCENT AUTO 66 % (41-73); Platelet Count 269 K/mm3 (150-400); RDW Coefficient Variation 13.9 % (11.7-14.2); RDW Standard Deviation 49.9 fL (35.1-46.3); Red Blood Cell Count 3.81 M/mm3 (3.80-5.20); White Blood Cell Count 5.74 K/mm3 (4.00-11.30)
[2021-10-03 11:43] LABS: Albumin, Blood 3.3 g/dL (3.4-5.0); Albumin/Globulin Ratio 0.8 (0.8-1.8); Bilirubin, Total 0.4 mg/dL (0.1-1.0); Bun/Creatinine Ratio 27.9 (12.0-20.0); Calcium, Blood 9.4 mg/dL (8.5-10.1); Creatinine, Blood 0.97 mg/dL (0.40-1.00); Globulin, Blood 3.9 g/dL (2.2-4.0); Potassium, Blood 4.2 mmol/L (3.5-5.5); Total Protein, Blood 7.2 g/dL (6.4-8.2)
== END 2021-10-03 12:34 | disposition home or self-care (01) ==
LOC: ER 10:04
PROVIDERS: Physician Assistant
DX: N81.4 Uterovaginal prolapse, unspecified (principal); E11.9 Type 2 diabetes mellitus without complications; I10 Essential (primary) hypertension; E03.9 Hypothyroidism, unspecified; Z79.899 Other long term (current) drug therapy; Z91.040 Latex allergy status; Z88.2 Allergy status to sulfonamides; Z91.09 Other allergy status, other than to drugs and biological substances; Z79.52 Long term (current) use of systemic steroids
CPT/HCPCS: 36415; 80053; 85025

== ENCOUNTER → 2021-12-01 | Outpatient (CLI) | payer OTHER ==
[2021-12-01 19:20] LABS: Source, Urine Clean Catch
[2021-12-01 19:25] LABS: Appearance, Urine Turbid (Clear); Bilirubin, Urine Neg (Neg); Blood, Urine Neg (Neg); Color, Urine Yellow (P-Yellow); Glucose Qualitative, Urine Neg (Neg); Ketones, Urine 1+ (Neg); Leukocyte Esterase, Urine Neg (Neg); Nitrite, Urine Neg (Neg); Protein, Urine 1+ (Neg); Specific Gravity, Urine 1.025 (1.003-1.022); Urobilinogen, Urine NORM (Normal)
[2021-12-01 19:43] LABS: Bacteria Many /hpf; Mucus Mod (0-Heavy); Red Blood Cells, Urine 0-2 /hpf (0-2); Squamous Epithelial Cells Many /hpf (Few); White Blood Cells, Urine 0-2 /hpf (0-5)
== END | disposition home or self-care (01) ==
LOC: LAB SHORT 15:30 → LAB 15:30
PROVIDERS: Student in an Organized Health Care Education/Training Program
DX: R10.9 Unspecified abdominal pain (principal)
CPT/HCPCS: 81001; 87086

== ENCOUNTER 2023-05-21 10:15 | Emergency (ER) | payer OTHER ==
[~2023-05-21] VITALS: Ht 162.6 cm; Wt 99.8 kg
[2023-05-21 10:50] VITALS: BP 150/7
== END 2023-05-21 14:44 | disposition home or self-care (01) ==
LOC: ER 10:15
DX: M25.561 Pain in right knee (principal); I10 Essential (primary) hypertension; E03.9 Hypothyroidism, unspecified; M17.11 Unilateral primary osteoarthritis, right knee; W01.0XXA Fall on same level from slipping, tripping and stumbling without subsequent striking against object, initial encounter; Z88.2 Allergy status to sulfonamides; Z91.09 Other allergy status, other than to drugs and biological substances; Z91.040 Latex allergy status; Z79.890 Hormone replacement therapy; Z79.52 Long term (current) use of systemic steroids; Z79.899 Other long term (current) drug therapy
CPT/HCPCS: 73562-RT; 73610; 93971; 99284-25

== ENCOUNTER → 2024-01-24 | Outpatient (CLI) | payer OTHER ==
[~2024-01-24] MED LIST changes: +ASPI81CH PO; +ATOR40TA PO; +CLOP75 PO; +FUROSEMIDE20 MG PO; +HYDHCL25 PO; +JARDIANCE10 MG PO; +MIRT15 PO; +Potassium Chlo20 ME1 PO
== END | disposition home or self-care (01) ==
LOC: LAB 13:50 → LAB SHORT 13:50
DX: R10.9 Unspecified abdominal pain (principal)
CPT/HCPCS: 87086

== ENCOUNTER → 2024-02-04 | Outpatient (CLI) | payer OTHER ==
[2024-02-04 18:51] LABS: Source, Urine Clean Catch
[2024-02-04 19:27] LABS: Appearance, Urine Cloudy (Clear); Bilirubin, Urine Neg (Neg); Blood, Urine Neg (Neg); Color, Urine Yellow (P-Yellow); Glucose Qualitative, Urine Neg (Neg); Ketones, Urine Neg (Neg); Leukocyte Esterase, Urine 2+ (Neg); Nitrite, Urine Neg (Neg); Protein, Urine 1+ (Neg); Urobilinogen, Urine NORM (Normal)
[2024-02-04 19:50] LABS: Bacteria Many /hpf; Red Blood Cells, Urine 0-2 /hpf (0-2); Squamous Epithelial Cells Few /hpf (Few)
== END ==
LOC: LAB SHORT 18:48 → LAB 18:48
PROVIDERS: Student in an Organized Health Care Education/Training Program
DX: R10.9 Unspecified abdominal pain (principal); Z87.442 Personal history of urinary calculi
CPT/HCPCS: 81001; 87086

== ENCOUNTER → 2024-02-12 | Outpatient (CLI) | payer OTHER | END | disposition home or self-care (01) | LOC: LAB 14:43 → LAB SHORT 14:43 | DX: R30.0 Dysuria (principal) | CPT/HCPCS: 87086 ==

== ENCOUNTER → 2024-04-11 | Outpatient (CLI) | payer OTHER | LOC: LAB SHORT 16:00 → LAB 16:00 | DX: R82.90 Unspecified abnormal findings in urine (principal) | CPT/HCPCS: 87086 ==

== ENCOUNTER → 2024-04-18 | Outpatient (CLI) | payer OTHER ==
[2024-04-18 14:44] LABS: Source, Urine Clean Catch
[2024-04-18 14:53] LABS: Bacteria Rare /hpf; Red Blood Cells, Urine Not Seen /hpf (0-2); Squamous Epithelial Cells Mod /hpf (Few)
== END | disposition home or self-care (01) ==
LOC: LAB 14:42 → LAB SHORT 14:42
PROVIDERS: Internal Medicine
DX: M53.3 Sacrococcygeal disorders, not elsewhere classified (principal); R35.0 Frequency of micturition
CPT/HCPCS: 81015; 87086

== ENCOUNTER 2024-06-01 19:40 | Emergency (ER) | payer OTHER ==
[~2024-06-01] VITALS: Ht 162.6 cm; Wt 90.7 kg
[2024-06-01 19:52] VITALS: BP 139/79
[2024-06-01] MEDS ORDERED: HYDROcodone 5-APAP 325 TAB PO ONE (20:05)
[2024-06-01] MEDS ORDERED: Ketorolac Tromethamine 30mg Vial IM ONE (20:05)
[2024-06-01] MEDS ORDERED: Mobic15 MG PO (21:50)
== END 2024-06-01 22:09 | disposition home or self-care (01) ==
LOC: ER 19:40
DX: M54.50 Low back pain, unspecified (principal); G89.29 Other chronic pain; I10 Essential (primary) hypertension; E03.9 Hypothyroidism, unspecified; Z91.040 Latex allergy status; Z88.2 Allergy status to sulfonamides; Z91.048 Other nonmedicinal substance allergy status; Z79.899 Other long term (current) drug therapy; Z79.890 Hormone replacement therapy; Z79.82 Long term (current) use of aspirin
CPT/HCPCS: 96372; 99283-25; A9270; J1885

== ENCOUNTER 2024-07-07 18:11 | Inpatient (IN) | payer OTHER ==
[~2024-07-07] VITALS: Ht 162.6 cm; Wt 93.0 kg
[~2024-07-07 18:11] MED LIST changes: -LOSA25 PO; +LOSARTAN POTAS100 M1 PO; +Mobic15 MG PO
[2024-07-07 18:54] LABS: BASOPHILS ABSOLUTE AUTO 0.03 K/mm3 (0.00-0.23); BASOPHILS PERCENT AUTO 0 % (0-2); EOSINOPHILS PERCENT AUTO 3 % (0-6); Hematocrit 38.3 % (33.0-51.0); Hemoglobin 12.1 g/dL (11.5-16.0); IMMATURE GRAN ABSOLUTE AUTO 0.02 K/mm3 (0.00-0.10); IMMATURE GRAN PERCENT AUTO 0 % (0-1); LYMPHOCYTES ABSOLUTE AUTO 0.77 K/mm3 (0.84-5.20); LYMPHOCYTES PERCENT AUTO 11 % (21-46); MONOCYTES ABSOLUTE AUTO 0.71 K/mm3 (0.16-1.47); MONOCYTES PERCENT AUTO 10 % (4-13); Mean Corpuscular HGB 32.8 pg (26.0-34.0); Mean Corpuscular HGB Conc 31.6 g/dL (31.5-36.5); Mean Corpuscular Volume 104 fL (80-100); Mean Platelet Volume 9.9 fL (9.1-12.4); NEUTROPHILS ABSOLUTE AUTO 5.57 K/mm3 (1.96-9.15); NEUTROPHILS PERCENT AUTO 76 % (41-73); Platelet Count 218 K/mm3 (150-400); RDW Coefficient Variation 14.4 % (11.7-14.2); RDW Standard Deviation 54.5 fL (35.1-46.3); Red Blood Cell Count 3.69 M/mm3 (3.80-5.20)
[2024-07-07 18:59] LABS: Source, Urine Clean Catch
[2024-07-07 19:01] LABS: Appearance, Urine Hazy (Clear); Bilirubin, Urine Neg (Neg); Blood, Urine 1+ (Neg); Color, Urine Yellow (P-Yellow); Glucose Qualitative, Urine Neg (Neg); Ketones, Urine Neg (Neg); Leukocyte Esterase, Urine 3+ (Neg); Nitrite, Urine Neg (Neg); Protein, Urine 2+ (Neg); Specific Gravity, Urine 1.025 (1.003-1.022); Urobilinogen, Urine NORM (Normal)
[2024-07-07 19:12] LABS: Albumin, Blood 3.6 g/dL (3.4-5.0); Albumin/Globulin Ratio 0.9 (0.8-1.8); Bilirubin, Total 0.3 mg/dL (0.1-1.0); Bun/Creatinine Ratio 16.6 (12.0-20.0); Calcium, Blood 9.6 mg/dL (8.5-10.1); Creatinine, Blood 1.81 mg/dL (0.40-1.00); Globulin, Blood 3.9 g/dL (2.2-4.0); Potassium, Blood 4.9 mmol/L (3.5-5.5); Total Protein, Blood 7.5 g/dL (6.4-8.2)
[2024-07-07 19:21] LABS: Bacteria Many /hpf; Squamous Epithelial Cells Few /hpf (Few)
[2024-07-07 19:47] LABS: CORONAVIRUS COVID-19 AG Negative (NEGATIVE); INFLUENZA A AG Negative (NEGATIVE); INFLUENZA B AG Negative (NEGATIVE)
[2024-07-07] MEDS ORDERED: Lactated Ringer's 1,000 ML IV ONE (21:00)
[2024-07-07] MEDS ORDERED: Acetaminophen 325 MG TABLET PO PRN (22:10)
[2024-07-07] MEDS ORDERED: CefTRIAXone Sodium 1,000 MG in NS 100 ML IV ONE (22:10)
[2024-07-07] MEDS ORDERED: FLU VACC TS2024-25(6MOS UP)/PF 45 MCG/0.5 ML SYRINGE IM ONE (22:15)
[2024-07-07 23:28] VITALS: BP 123/90
[2024-07-08] MEDS ORDERED: NS 250 ML IV PRN (00:05)
--- NOTE | 2024-07-08 00:38 | NUR ---
TRANSFER SUMMARY: PT AOX4 WITH SLIGHT CONFUSION. ABLE TO STAND PIVOT FROM GURNEY INTO HOSPITAL BED. ABLE TO ANSWER APPROPRIATELY AND MAKE NEEDS KNOWN. HAS A SMALL PRESSURE ULCER ON THE COCCYX, MEPILEX IN PLACE AND PROVIDER NOTIFIED. PT IS VERY PLEASANT AND COOPERATIVE IN CARE. TOLERATING MEDS WELL. PT ORIENTED TO ROOM, RESTING IN BED, CALL LIGHT IN REACH, BED IN LOWEST POSITION. CONTINUING CARE.
[2024-07-08 01:03] LABS: BASOPHILS ABSOLUTE AUTO 0.03 K/mm3 (0.00-0.23); BASOPHILS PERCENT AUTO 1 % (0-2); EOSINOPHILS ABSOLUTE AUTO 0.17 K/mm3 (0.00-0.68); EOSINOPHILS PERCENT AUTO 3 % (0-6); Hematocrit 35.6 % (33.0-51.0); Hemoglobin 11.7 g/dL (11.5-16.0); IMMATURE GRAN ABSOLUTE AUTO 0.02 K/mm3 (0.00-0.10); IMMATURE GRAN PERCENT AUTO 0 % (0-1); LYMPHOCYTES ABSOLUTE AUTO 1.15 K/mm3 (0.84-5.20); LYMPHOCYTES PERCENT AUTO 18 % (21-46); MONOCYTES ABSOLUTE AUTO 0.69 K/mm3 (0.16-1.47); MONOCYTES PERCENT AUTO 11 % (4-13); Mean Corpuscular HGB 33.5 pg (26.0-34.0); Mean Corpuscular HGB Conc 32.9 g/dL (31.5-36.5); Mean Corpuscular Volume 102 fL (80-100); Mean Platelet Volume 9.9 fL (9.1-12.4); NEUTROPHILS ABSOLUTE AUTO 4.23 K/mm3 (1.96-9.15); NEUTROPHILS PERCENT AUTO 67 % (41-73); Platelet Count 197 K/mm3 (150-400); RDW Coefficient Variation 14.3 % (11.7-14.2); Red Blood Cell Count 3.49 M/mm3 (3.80-5.20); White Blood Cell Count 6.29 K/mm3 (4.00-11.30)
[2024-07-08 01:31] LABS: Alanine Aminotransfer (ALT/SGP 14 U/L (12-78); Albumin, Blood 3.2 g/dL (3.4-5.0); Albumin/Globulin Ratio 0.8 (0.8-1.8); Alk Phos 63 U/L (50-136); Anion Gap 11 mmol/L (3-11); Aspartate Aminotrans (AST/SGOT 15 U/L (12-37); Bilirubin, Total 0.3 mg/dL (0.1-1.0); Blood Urea Nitrogen 26 mg/dL (8-24); Bun/Creatinine Ratio 16.2 (12.0-20.0); CO2, Blood 23 mmol/L (21-32); Calcium, Blood 9.2 mg/dL (8.5-10.1); Chloride, Blood 114 mmol/L (98-108); Cholesterol 200 mg/dL (50-200); Globulin, Blood 3.8 g/dL (2.2-4.0); Glomerular Filtration Rate 31 (60-); Glucose, Blood 147 mg/dL (70-99); HDL Cholesterol 67 mg/dL (>39); LDL/HDL RATIO 1.5; Low Density Lipoprotein Chol 103 mg/dL (0-110); Potassium, Blood 4.2 mmol/L (3.5-5.5); Sodium, Blood 144 mmol/L (136-145); Triglycerides 148 mg/dL (30-160); Very Low Density Lipoprot Chol 29 mg/dL (6-32)
[2024-07-08] MEDS ORDERED: Lactated Ringer's 1,000 ML IV SCH (02:00)
[2024-07-08] MEDS ORDERED: NYSTOP15 GM TOP (03:06)
[2024-07-08] MEDS ORDERED: BUPROPION XL150 M1 PO (03:06)
[2024-07-08] MEDS ORDERED: NEURONTIN300 MG PO (03:07)
[2024-07-08] MEDS ORDERED: HYDROCODONE-AC1 EA19 PO (03:09)
[2024-07-08 04:23] VITALS: BP 152/90
--- NOTE | 2024-07-08 05:09 | NUR ---
SHIFT SUMMARY: PT AOX4 WITH SLIGHT CONFUSION. SMALL R SIDED DEFICIT BUT NOT VERY NOTICEABLE. PT SATTING 95 ON 2L OF O2. DENIES CHEST PAIN AND ONLY ENDORSES SOME SOB ON EXERTION. ABLE TO STAND PIVOT TO BEDSIDE COMMODE WITH 1PA. CAN PERFORM OWN ADLS. WAS ABLE TO DRINK SOME WATER AND HAD HALF A SANDWICH BEFORE BEING MADE NPO ~0100. STATES BEING THIRSTY AND HUNGRY BUT OTHERWISE DENIES ANY PAIN OR DISCOMFORT. PT TOLERATING MEDS WELL, RESTING IN BED, BED IN LOWEST POSITION, CALL LIGHT IN REACH. CONTINUING CARE.
[2024-07-08] MEDS ORDERED: HyDROXyzine HCl 25 MG Tab PO PRN (05:30)
[2024-07-08] MEDS ORDERED: HYDROcodone 5-APAP 325 TAB PO PRN (05:30)
[2024-07-08] MEDS ORDERED: Levothyroxine Sodium 0.025 MG Tab PO SCH (06:00)
[2024-07-08] MEDS ORDERED: Insulin Regular 100 UNIT/ML 10ML Vial SC SCH (06:00)
[2024-07-08 07:32] VITALS: BP 137/98
[2024-07-08] MEDS ORDERED: buPROPion HCL 150 MG TAB.SR.12H PO SCH (09:00)
[2024-07-08] MEDS ORDERED: PARoxetine HCl 20 MG Tab PO SCH (09:00)
[2024-07-08] MEDS ORDERED: Lactobacil 2-S.Thermo-Bifido 1 1 Cap PO SCH (09:00)
[2024-07-08] MEDS ORDERED: Enoxaparin 30 MG/0.3 ML SYR SC SCH (09:00)
[2024-07-08] MEDS ORDERED: Aspirin 81 MG Chew PO SCH (09:00)
[2024-07-08] MEDS ORDERED: Gabapentin 100 MG Cap PO SCH (09:00)
[2024-07-08] MEDS ORDERED: Empagliflozin 10 MG TAB PO SCH (09:00)
[2024-07-08] MEDS ORDERED: Atorvastatin 40 MG Tab PO SCH (09:00)
[2024-07-08] MEDS ORDERED: Miconazole Nitrate 2% 85 GM PWD TOP SCH (09:00)
[2024-07-08] MEDS ORDERED: Clopidogrel Bisulfate 75 MG Tab PO SCH (09:00)
[2024-07-08 12:01] VITALS: BP 129/90
[2024-07-08 15:57] VITALS: BP 132/84
[2024-07-08] MEDS ORDERED: Insulin Human Lispro 100 Units/ML 3ML Syringe SC SCH (16:30)
--- NOTE | 2024-07-08 18:51 | NUR ---
SUMMARY- PT AAOX4. FORGETFUL. THIS RN AND PT HAD EXTENSIVE TALK REGARDING PT'S CAREPLAN AND PLAN ALONG WITH PT'S STATUS. PT IS X1 ASSIST. ON 2.5L. BL=RA. NO COMPLAINTS OF PAIN. PT REMINDED TO TURN Q2 HRS AND OFFLOAD WEIGHT DUE TO ULCER ON COCCYX.
[2024-07-08 20:13] VITALS: BP 128/71
[2024-07-08] MEDS ORDERED: CefTRIAXone Sodium 1,000 MG in NS 100 ML IV SCH (21:00)
[2024-07-08] MEDS ORDERED: Mirtazapine 15 MG Tab PO SCH (21:00)
[2024-07-09] VITALS (7 sets, daily range): BP systolic 126–152; BP diastolic 84–101
[2024-07-09 05:38] LABS: Bun/Creatinine Ratio 14.8 (12.0-20.0); Calcium, Blood 9.6 mg/dL (8.5-10.1); Creatinine, Blood 1.55 mg/dL (0.40-1.00); Potassium, Blood 4.9 mmol/L (3.5-5.5)
[2024-07-09] MEDS ORDERED: NS 1,000 ML IV SCH (12:05)
--- NOTE | 2024-07-09 13:07 | NUR ---
1305- THIS RN NOTIFIED TLAANG PT HAD A 6 BEAT RUN OF SVT. PT IS ASYMPTOMATIC. VITALS TAKEN. NO NEW ORDERS.
--- NOTE | 2024-07-09 18:48 | NUR ---
SUMMARY- AAOX4. X1 ASSIST TO BSC. PT DENIES ANY PAIN. PT ON 2.5L. BL=RA. PT HAD 6 BEAT RUN OF SVT. MD YARBROUGHAAJOSE LUIS AWARE. PT ASYMPTOMATIC.
[2024-07-10 00:24] VITALS: BP 149/90
[2024-07-10 04:22] VITALS: BP 126/101
--- NOTE | 2024-07-10 07:12 | NUR ---
SHIFT SUMMARY PT LYING IN BED WATCHING TV. PT GOT UP TO BEDSIDE COMMODE, THEN BACK TO BED. PT SLEEPING COMFORTABLY. PT UP TO BEDSIDE COMMODE AGAIN, STANDING STRONGER. PT DESATTED TO 86%, BUT RETURNED TO 91% PROMPTLY. APPROX 0440, PT HAD 8-BEAT RUN OF VTACH, ASYMPTOMATIC. DR. BRYANT NOTIFIED. WILL RELAY TO DAY SHIFT.
[2024-07-10 07:39] VITALS: BP 139/105
[2024-07-10] MEDS ORDERED: Metoprolol Succinate 25 MG TABCR PO SCH (09:00)
[2024-07-10 09:05] LABS: Albumin, Blood 3.1 g/dL (3.4-5.0); Anion Gap 13 mmol/L (3-11); Blood Urea Nitrogen 26 mg/dL (8-24); CO2, Blood 24 mmol/L (21-32); Calcium, Blood 9.1 mg/dL (8.5-10.1); Chloride, Blood 109 mmol/L (98-108); Creatinine, Blood 1.73 mg/dL (0.40-1.00); Glomerular Filtration Rate 28 (60-); Glucose, Blood 128 mg/dL (70-99); Phosphorus, Blood 3.5 mg/dL (2.5-4.9); Potassium, Blood 4.7 mmol/L (3.5-5.5); Sodium, Blood 141 mmol/L (136-145)
[2024-07-10 11:12] VITALS: BP 135/81
[2024-07-10 15:15] VITALS: BP 112/80
--- NOTE | 2024-07-10 16:33 | NUR ---
PT HAS BEEN AO AND COOPERAITVE OF CARE. PT IS ABLE TO MAKE NEEDS KNOWN AND IS A ONE PERSON TO BSC. PT 2L O2 CURRENTLY. PT WAS UP IN CHAIR FOR A GOOD PORTION OF THE DAY AND IS NOW RESTING IN BED. CALL LIGHT IS WITHIN REACH WILL CONTINUE TO MONITOR.
[2024-07-10] MEDS ORDERED: NS 1,000 ML IV SCH (20:00)
[2024-07-11 05:35] LABS: Anion Gap 13 mmol/L (3-11); Blood Urea Nitrogen 34 mg/dL (8-24); Bun/Creatinine Ratio 21.2 (12.0-20.0); CO2, Blood 22 mmol/L (21-32); Calcium, Blood 9.5 mg/dL (8.5-10.1); Chloride, Blood 110 mmol/L (98-108); Glomerular Filtration Rate 31 (60-); Glucose, Blood 149 mg/dL (70-99); Phosphorus, Blood 3.7 mg/dL (2.5-4.9); Potassium, Blood 4.3 mmol/L (3.5-5.5); Sodium, Blood 141 mmol/L (136-145)
--- NOTE | 2024-07-11 06:57 | NUR ---
SHIFT SUMMARY PT UP IN CHAIR AT START OF SHIFT, WATCHING TV. AFTER EVENING MEDICATION PASS, PT GOT INTO BED FOR THE NIGHT. NOW SLEEPING PEACEFULLY. 2230 PT URINE SPECEMIN COLLECTED. 100, SPECEMIN SENT TO LAB. PT SLEPT FOR DURATION OF SHIFT. SHE HAS BEEN PLEASANT AND COOPERATIVE WITH HER CARE. CALL LIGHT IN REACH.
[2024-07-11 07:11] VITALS: BP 117/68
[2024-07-11] MEDS ORDERED: Metoprolol Succinate 50 MG TABCR PO SCH (09:00)
[2024-07-11 11:45] VITALS: BP 98/85
[2024-07-11 15:56] VITALS: BP 116/80
--- NOTE | 2024-07-11 19:24 | NUR ---
SHIFT SUMMARY PATIENT A/OX4 THIS SHIFT, ABLE TO MAKE NEEDS KNOWN. PLEASANT AND COOPERATIVE WITH CARE. TITRATED OFF OF OXYGEN THIS SHIFT, TOLERATING ROOM AIR WITH SPO2 ABOVE 90%. CONTINUOUS PULSE OX IN PLACE. WOUND CARE ORDERS RECEIVED THIS SHIFT FROM DR. PEÑA FOR PRESSURE INJURY TO COCCYX. WOUND CARE PROVIDED PER ORDER. TELEMETRY IN PLACE, NO EVENTS NOTED. PATIENT'S FAMILY AT BEDSIDE THROUGHOUT THE SHIFT. NO OTHER CONCERNS AT THIS TIME. REPORT GIVEN TO [employer] SUPERVISOR RN.
[2024-07-11 21:50] VITALS: BP 111/69
[2024-07-12 02:02] VITALS: BP 123/103
--- NOTE | 2024-07-12 05:29 | NUR ---
SHIFT SUMMARY NOC PT A/O X 4. PLEASANT AND COOPERATIVE WITH CARE. VSS. HS CBG 151 CNI. AT BEDTIME PT SATS DROPPED INTO MID 80'S, AND PT AGREED TO WEAR PRN O2 3L/NC FOR SLEEP AND SPO2 >94%. PT ON TELE SINUS IN 90'S. PT VOIDING REGULARLY WITH 1PA/FWW TO BATHROOM. MEPILEX ON STAGE 2 PRESSURE INJURY TO COCCYX C/D/I. PT EXPECTTED TO DISCHARGE HOME TODAY. PT CURRENTLY RESTING WITH BED IN LOWEST POSITION, AND CALL LIGHT WITHIN REACH.
[2024-07-12 06:27] LABS: Alanine Aminotransfer (ALT/SGP 13 U/L (12-78); Albumin/Globulin Ratio 0.8 (0.8-1.8); Alk Phos 65 U/L (50-136); Anion Gap 11 mmol/L (3-11); Aspartate Aminotrans (AST/SGOT 16 U/L (12-37); Bilirubin, Total 0.3 mg/dL (0.1-1.0); Blood Urea Nitrogen 33 mg/dL (8-24); Bun/Creatinine Ratio 19.8 (12.0-20.0); CO2, Blood 24 mmol/L (21-32); Calcium, Blood 9.3 mg/dL (8.5-10.1); Chloride, Blood 112 mmol/L (98-108); Creatinine, Blood 1.67 mg/dL (0.40-1.00); Free Thyroxine 1.04 ng/dL (0.70-1.60); Globulin, Blood 3.7 g/dL (2.2-4.0); Glomerular Filtration Rate 29 (60-); Glucose, Blood 134 mg/dL (70-99); Potassium, Blood 4.5 mmol/L (3.5-5.5); Sodium, Blood 142 mmol/L (136-145); Total Protein, Blood 6.7 g/dL (6.4-8.2)
[2024-07-12 07:40] VITALS: BP 128/92
[2024-07-12 11:22] VITALS: BP 107/72
[2024-07-12] MEDS ORDERED: METO50ER PO (13:25)
[2024-07-12] MEDS ORDERED: ATOR40TA PO (13:25)
--- NOTE | 2024-07-12 14:05 | NUR ---
DISCHARGE NOTE PATIENT A/OX3, ABLE TO MAKE NEEDS KNOWN. PLEASANT AND COOPERATIVE WITH CARE. DAUGHTER AT BEDSIDE DURING DISCHARGE INSTRUCTIONS. PLAN TO FOLLOW UP WITH [facility] WITHIN 1 WEEK, NEW MEDICATIONS DISCUSSED AND PATIENT INFORMED ON STOP TO PREVIOUS HOME MEDICATIONS WELL. NEW MEDS FAXED TO [facility] PER PATIENT REQUEST. IV, TELEMETRY, AND CONTINUOUS PULSE OX REMOVED PRIOR TO DISCHARGE. SPO2 ABOVE 90% ON ROOM AIR. INSTRUCTED ON WOUND CARE DIRECTIONS. PATIENT AND FAMILY WITH NO QUESTIONS AT TIME OF DISCHARGE. ASSISTED TO FAMILY VEHICLE VIA WHEELCHAIR BY [facility] STAFF.
== END 2024-07-12 14:23 | disposition home or self-care (01) | DRG 280 ==
LOC: ER 18:11 → MEDS 22:09 → ERHOLD 22:09 → MEDS 23:15
PROVIDERS: Hospitalist; Internal Medicine; Student in an Organized Health Care Education/Training Program; ADMIT Student in an Organized Health Care Education/Training Program
DX: I35.0 Nonrheumatic aortic (valve) stenosis (principal); I50.23 Acute on chronic systolic (congestive) heart failure; I21.4 Non-ST elevation (NSTEMI) myocardial infarction; I13.0 Hypertensive heart and chronic kidney disease with heart failure and stage 1 through stage 4 chronic kidney disease, or unspecified chronic kidney disease; N17.9 Acute kidney failure, unspecified; N30.00 Acute cystitis without hematuria; Z28.21 Immunization not carried out because of patient refusal; I48.0 Paroxysmal atrial fibrillation; Z68.35 Body mass index [BMI] 35.0-35.9, adult; G62.9 Polyneuropathy, unspecified; G47.33 Obstructive sleep apnea (adult) (pediatric); M35.3 Polymyalgia rheumatica; E03.9 Hypothyroidism, unspecified; I69.398 Other sequelae of cerebral infarction; R26.89 Other abnormalities of gait and mobility; G89.29 Other chronic pain; M54.9 Dorsalgia, unspecified; N18.32 Chronic kidney disease, stage 3b; B96.20 Unspecified Escherichia coli [E. coli] as the cause of diseases classified elsewhere; E66.01 Morbid (severe) obesity due to excess calories; F32.A Depression, unspecified; F41.9 Anxiety disorder, unspecified; Z96.649 Presence of unspecified artificial hip joint; R73.9 Hyperglycemia, unspecified; Z88.2 Allergy status to sulfonamides; Z91.040 Latex allergy status; Z91.048 Other nonmedicinal substance allergy status; Z79.02 Long term (current) use of antithrombotics/antiplatelets; Z79.899 Other long term (current) drug therapy; Z79.82 Long term (current) use of aspirin; Z90.49 Acquired absence of other specified parts of digestive tract; Z98.49 Cataract extraction status, unspecified eye
CPT/HCPCS: 36415; 71045; 76770; 80048; 80053; 80061; 80069; 81001; 82570; 82947; 83735; 83880; 84300; 84439; 84443; 84484; 85025; 87077; 87086; 87186; 87428-QW; 93005; 93010; 94762; 97110; 97116; 97161; 97165; 97530; 97535; 99285-25; A9270; C8929; J0696; J1650; J1815; J7030; J7050; J7120; Q9957

== ENCOUNTER 2024-09-02 06:08 | Inpatient (IN) | payer OTHER ==
[~2024-09-02] VITALS: Ht 162.6 cm; Wt 91.8 kg
[~2024-09-02 06:08] MED LIST changes: +BUPROPION XL150 M1 PO; +HYDROCODONE-AC1 EA19 PO; +METO50ER PO; +NEURONTIN300 MG PO; +NYSTOP15 GM TOP
[2024-09-02 06:52] LABS: Albumin, Blood 3.2 g/dL (3.4-5.0); Albumin/Globulin Ratio 0.9 (0.8-1.8); Bilirubin, Total 0.2 mg/dL (0.1-1.0); Calcium, Blood 8.7 mg/dL (8.5-10.1); Creatinine, Blood 1.35 mg/dL (0.40-1.00); Globulin, Blood 3.4 g/dL (2.2-4.0); Total Protein, Blood 6.6 g/dL (6.4-8.2)
[2024-09-02 08:02] LABS: BASOPHILS ABSOLUTE AUTO 0.03 K/mm3 (0.00-0.23); BASOPHILS PERCENT AUTO 1 % (0-2); EOSINOPHILS ABSOLUTE AUTO 0.24 K/mm3 (0.00-0.68); EOSINOPHILS PERCENT AUTO 4 % (0-6); Hematocrit 32.4 % (33.0-51.0); Hemoglobin 10.5 g/dL (11.5-16.0); IMMATURE GRAN ABSOLUTE AUTO 0.02 K/mm3 (0.00-0.10); IMMATURE GRAN PERCENT AUTO 0 % (0-1); LYMPHOCYTES ABSOLUTE AUTO 1.09 K/mm3 (0.84-5.20); LYMPHOCYTES PERCENT AUTO 18 % (21-46); MONOCYTES ABSOLUTE AUTO 0.73 K/mm3 (0.16-1.47); MONOCYTES PERCENT AUTO 12 % (4-13); Mean Corpuscular HGB 32.7 pg (26.0-34.0); Mean Corpuscular HGB Conc 32.4 g/dL (31.5-36.5); Mean Corpuscular Volume 101 fL (80-100); Mean Platelet Volume 9.9 fL (9.1-12.4); NEUTROPHILS ABSOLUTE AUTO 3.82 K/mm3 (1.96-9.15); NEUTROPHILS PERCENT AUTO 65 % (41-73); Platelet Count 198 K/mm3 (150-400); RDW Coefficient Variation 14.1 % (11.7-14.2); RDW Standard Deviation 52.1 fL (35.1-46.3); Red Blood Cell Count 3.21 M/mm3 (3.80-5.20); White Blood Cell Count 5.93 K/mm3 (4.00-11.30)
[2024-09-02] MEDS ORDERED: Furosemide 10 MG / ML 2ML Vial IV ONE (09:55)
[2024-09-02 12:30] LABS: Anti-Xa UFH, PHA Monitoring <0.10 IU/mL; International Normalized Ratio 0.97; Prothrombin Time Results 10.4 Sec (9.7-11.5)
[2024-09-02] MEDS ORDERED: Dose Adjust by Pharmacy XX STA ×2 (12:35→19:56)
[2024-09-02] MEDS ORDERED: Heparin Sodium,Porcine/0.5 NS 500 ML IV SCH (12:40)
[2024-09-02] MEDS ORDERED: Heparin Sodium 5000 Units/ML 1ML MDV IV ONE (12:40)
[2024-09-02] MEDS ORDERED: Nitroglycerin 0.4 MG SUBL SL PRN (13:05)
[2024-09-02] MEDS ORDERED: Gabapentin 100 MG Cap PO SCH (14:00)
[2024-09-02] MEDS ORDERED: Furosemide 10 MG/ML 4ML Vial IV SCH (14:00)
[2024-09-02 14:38] VITALS: BP 131/69
[2024-09-02] MEDS ORDERED: ADALAT CC30 M1 PO (15:13)
[2024-09-02 16:42] VITALS: BP 145/59
[2024-09-02] MEDS ORDERED: Polyethylene Glycol 3350 17 gm PO SCH (16:55)
[2024-09-02] MEDS ORDERED: HyDROXyzine HCl 25 MG Tab PO PRN (16:55)
--- NOTE | 2024-09-02 18:14 | NUR ---
SHIFT SUMMARY PT ARRIVED TO PCU AT APPROX. 1430, HER DAUGHTER WAS AT BEDSIDE. SHE IS ALERT AND ORIENTED X 4 BUT REPORTED RECENT FALLS AT HOME THEREFORE IS A 1 PERSON SBA W/ FWW. BP STABLE. PER TELE MONITORING, HR NOTED TO BE SINUS RYTHM 60'S. SHE DENIES FEELINGS OF CHEST PAIN/PRESSURE. SHE REPORTED FEELING DIZZY AT TIMES AND WAS EDUCATED TO CALL STAFF FOR ASSISTANCE WHEN GETTING UP, BED ALARM ALSO IN USE. SPO2 MAINTAINED >95% VIA RA, SHE REPORTS OCCASSIONAL SOB. SHE DENIES FEELINGS OF NAUSEA. HEPARIN IS INFUSING PER EMAR ORDERS. UPON ARRIVAL TO PCU, ABD WAS NOTED TO BE DISTENDED, PT RECIEVED LASIX IN ED BUT ONLY HAD 50ML OUTPUT, UPON BLADDER SCANNING, IT WAS NOTED THAT BLADDER VOLUME WAS >1117, PT STRAIGHT CATHETARIZED PER PROTOCOL W/ [address] MONGE MADE AWARE. PT HAS SINCE BEEN ABLE TO USE BEDSIDE URINAL W/ ASSISTANCE W/ URINARY VOID OF 300ML ALONG W/ A SMALL BM. SHE HAS TWO DAUGHTERS, BOTH OF WHICH HAVE BEEN AT BEDSIDE AND WHOSE NUMBERS ARE ON PT BOARD IN ROOM. CALL LIGHT IS W/IN REACH, BED ALARM IS ON.
[2024-09-02 20:52] VITALS: BP 134/98
[2024-09-02] MEDS ORDERED: Docusate Sodium 100 MG Cap PO SCH (21:00)
[2024-09-02 23:45] VITALS: BP 151/98
[2024-09-03] VITALS (17 sets, daily range): BP systolic 100–153; BP diastolic 46–94
[2024-09-03 02:15] LABS: BASOPHILS ABSOLUTE AUTO 0.04 K/mm3 (0.00-0.23); BASOPHILS PERCENT AUTO 1 % (0-2); EOSINOPHILS ABSOLUTE AUTO 0.26 K/mm3 (0.00-0.68); EOSINOPHILS PERCENT AUTO 5 % (0-6); Hematocrit 37.6 % (33.0-51.0); IMMATURE GRAN ABSOLUTE AUTO 0.03 K/mm3 (0.00-0.10); IMMATURE GRAN PERCENT AUTO 1 % (0-1); LYMPHOCYTES ABSOLUTE AUTO 1.31 K/mm3 (0.84-5.20); LYMPHOCYTES PERCENT AUTO 26 % (21-46); MONOCYTES PERCENT AUTO 12 % (4-13); Mean Corpuscular HGB 32.3 pg (26.0-34.0); Mean Corpuscular HGB Conc 31.9 g/dL (31.5-36.5); Mean Corpuscular Volume 101 fL (80-100); Mean Platelet Volume 10.1 fL (9.1-12.4); NEUTROPHILS ABSOLUTE AUTO 2.72 K/mm3 (1.96-9.15); NEUTROPHILS PERCENT AUTO 55 % (41-73); Platelet Count 224 K/mm3 (150-400); RDW Coefficient Variation 14.1 % (11.7-14.2); RDW Standard Deviation 52.9 fL (35.1-46.3); Red Blood Cell Count 3.71 M/mm3 (3.80-5.20); White Blood Cell Count 4.96 K/mm3 (4.00-11.30)
[2024-09-03 02:25] LABS: Alanine Aminotransfer (ALT/SGP 18 U/L (12-78); Albumin, Blood 3.5 g/dL (3.4-5.0); Albumin/Globulin Ratio 0.9 (0.8-1.8); Alk Phos 61 U/L (50-136); Anion Gap 11 mmol/L (3-11); Aspartate Aminotrans (AST/SGOT 22 U/L (12-37); Bilirubin, Total 0.3 mg/dL (0.1-1.0); Blood Urea Nitrogen 31 mg/dL (8-24); Bun/Creatinine Ratio 19.4 (12.0-20.0); CHOL/HDL RATIO 2.7; CO2, Blood 26 mmol/L (21-32); Calcium, Blood 9.1 mg/dL (8.5-10.1); Chloride, Blood 107 mmol/L (98-108); Cholesterol 193 mg/dL (50-200); Glomerular Filtration Rate 31 (60-); Glucose, Blood 124 mg/dL (70-99); HDL Cholesterol 71 mg/dL (>39); LDL/HDL RATIO 1.4; Low Density Lipoprotein Chol 97 mg/dL (0-110); Potassium, Blood 3.8 mmol/L (3.5-5.5); Sodium, Blood 140 mmol/L (136-145); Total Protein, Blood 7.5 g/dL (6.4-8.2); Triglycerides 125 mg/dL (30-160); Very Low Density Lipoprot Chol 25 mg/dL (6-32)
[2024-09-03] MEDS ORDERED: Dose Adjust by Pharmacy XX STA (03:04)
[2024-09-03] MEDS ORDERED: Levothyroxine Sodium 0.025 MG Tab PO SCH (06:00)
--- NOTE | 2024-09-03 06:23 | NUR ---
SHIFT SUMMARY: PT IS A&OX4, FORGETFUL AT TIMES, PLEASANT AND COOPERATIVE WITH CARE. PT VERY LETHARGIC AFTER HS ATARAX, HARD TO WAKE FOR AM MEDICATION. VSS ON RA, 2L NC WHILE ASLEEP D/T HER DIONNE. SB-SR @ 54-70'S, WITH PAC'S AND PVC'S. DENIES PAIN. HEPARIN GTT INFUSING PER ORDER. TOLERATING A CONS CARB DIET, NPO AFTER MN FOR AN ANGIOGRAM THIS AM. X1 ASSIST WITH FWW TO BSC. VOIDING LARGE AMOUNTS OF YELLOW URINE. X1 LARGE FORMED BM THIS SHIFT. BED IN LOWEST POSITION, CALL LIGHT WITHIN REACH. BED ALARM SET FOR PT'S SAFETY.
[2024-09-03] MEDS ORDERED: NS 250 ML IV ONE (07:39)
[2024-09-03] MEDS ORDERED: Nitroglycerin 2 MG/20 ML BTL ONE (07:39)
[2024-09-03] MEDS ORDERED: NS 1,000 ML IV ONE ×2 (07:39→07:46)
[2024-09-03] MEDS ORDERED: NiCARdipine HCL 1,000 MCG/5 ML SYR ONE (07:39)
[2024-09-03] MEDS ORDERED: Heparin Sodium 1000 Units/ML 10ML MDV ONE ×2 (07:40→07:46)
[2024-09-03] MEDS ORDERED: FentaNYL Citrate 50 MCG/ML 2 ML Injection ONE (07:46)
[2024-09-03] MEDS ORDERED: Midazolam HCl 1MG / ML 2ML Vial ONE (07:46)
[2024-09-03] MEDS ORDERED: Metoprolol Succinate 50 MG TABCR PO SCH (09:00)
[2024-09-03] MEDS ORDERED: Atorvastatin 40 MG Tab PO SCH (09:00)
[2024-09-03] MEDS ORDERED: Aspirin 81 MG Chew PO SCH (09:00)
[2024-09-03] MEDS ORDERED: Clopidogrel Bisulfate 75 MG Tab PO SCH (09:00)
[2024-09-03] MEDS ORDERED: PARoxetine HCl 20 MG Tab PO SCH (09:00)
--- NOTE | 2024-09-03 09:30 | NUR ---
BACK FROM ANGIO PT BACK FROM ANGIO AT APPROXIMATELY 0905. PT VERY DROWSY BUT AROUSABLE PRIOR TO PROCEDURE AND REMAINS THIS WAY AFTER ANGIO. BP STABLE, SINUS WITH PACs 50-70's, DENIES CP/PRESSURE. SpO2> 92% ON 2L VIA NC, PT USES CPAP WHEN SLEEPING AT HOME, DENIES SOB. 1 LC TO BSC, CONTINENT OF URINE AND BOWEL. R RADIAL SITE WNL, TR BAND AND ARM BOARD IN PLACE; NO BRUISING, BLEEDING, OR HEMATOMA. SpO2> 92% NO R INDEX FINGER. FAMILY AT BEDSIDE, CALL LIGHT IN REACH.
[2024-09-03] MEDS ORDERED: Furosemide 40 MG Tab PO ONE (09:40)
--- NOTE | 2024-09-03 17:35 | NUR ---
SHIFT SUMMARY SEE PREVIOUS NOTE. PT MORE ALERT THIS AFTERNOON, A&Ox4, CALLS AND COMMUNICATES NEEDS APPROPRIATELY. BP STABLE, SINUS WITH PACs 50-70's, DENIES CP/PRESSURE. SpO2> 92% ON RA WHILE AWAKE, 2L VIA NC WHILE ASLEEP, PT USES CPAP WHEN SLEEPING AT HOME, DENIES SOB. 1 ASSIST TO BSC, CONTINENT OF URINE AND BOWEL. R RADIAL SITE RECOVERED WNL, ARM BOARD IN PLACE; NO BRUISING, BLEEDING, OR HEMATOMA. SpO2> 92% NO R INDEX FINGER. NO C/O PAIN. NO OTHER EVENTS, WILL REPORT TO ONCOMING RN.
[2024-09-04 03:17] LABS: BASOPHILS ABSOLUTE AUTO 0.04 K/mm3 (0.00-0.23); BASOPHILS PERCENT AUTO 1 % (0-2); EOSINOPHILS ABSOLUTE AUTO 0.23 K/mm3 (0.00-0.68); EOSINOPHILS PERCENT AUTO 4 % (0-6); Hematocrit 36.8 % (33.0-51.0); Hemoglobin 12.1 g/dL (11.5-16.0); IMMATURE GRAN ABSOLUTE AUTO 0.05 K/mm3 (0.00-0.10); IMMATURE GRAN PERCENT AUTO 1 % (0-1); LYMPHOCYTES PERCENT AUTO 20 % (21-46); MONOCYTES ABSOLUTE AUTO 0.72 K/mm3 (0.16-1.47); MONOCYTES PERCENT AUTO 12 % (4-13); Mean Corpuscular HGB 32.2 pg (26.0-34.0); Mean Corpuscular HGB Conc 32.9 g/dL (31.5-36.5); Mean Corpuscular Volume 98 fL (80-100); NEUTROPHILS ABSOLUTE AUTO 3.67 K/mm3 (1.96-9.15); NEUTROPHILS PERCENT AUTO 62 % (41-73); Platelet Count 205 K/mm3 (150-400); RDW Coefficient Variation 14.1 % (11.7-14.2); RDW Standard Deviation 51.2 fL (35.1-46.3); Red Blood Cell Count 3.76 M/mm3 (3.80-5.20); White Blood Cell Count 5.91 K/mm3 (4.00-11.30)
[2024-09-04 03:40] VITALS: BP 155/62
[2024-09-04 03:48] LABS: Bun/Creatinine Ratio 27.7 (12.0-20.0); Calcium, Blood 8.8 mg/dL (8.5-10.1); Creatinine, Blood 1.48 mg/dL (0.40-1.00); Potassium, Blood 4.2 mmol/L (3.5-5.5)
[2024-09-04] MEDS ORDERED: Dose Adjust by Pharmacy XX STA (04:06)
--- NOTE | 2024-09-04 04:51 | NUR ---
SHIFT SUMMARY THIS RN ASSUMED CARE OF PATIENT AT 1900. PT ANSWERING QUESTIONS APPROPRIATELY. APPEARS FORGETFUL AT TIMES. BED ALARM ON FOR SAFETY. PT SET BED ALARM OFF MULTIPLE TIMES DURING THIS SHIFT TO GET UP AND USE THE BATHROOM. REDIRECTABLE AND COOPERATIVE WITH CARE OTHERWISE. SB/SR WITH HR 50-70, PAC'S/PVC'S NOTED. BP STABLE. ON 2L VIA NC WITH SLEEP. AFEBRILE. RT RADIAL SITE SOFT/NONTENDER, SMALL AMOUNT OF OOZING FROM PUNCTURE SITE WHICH IS UNCHANGED FROM PREVIOUS SHIFT. DRESSINGS C/D/I. ARMBOARD IN PLACE. PT EDUCATED ON RESTRICTIONS FOR MOVEMENTS AND USE OF RT WRIST. PT VERBALIZED UNDERSTANDING BUT DOES FORGET WHEN AMBULATING WITH WALKER. BED IN LOWEST POSITION AND CALL LIGHT WITHIN REACH. THIS RN WILL REPORT TO ONCOMING DAYSHIFT RN.
[2024-09-04 07:49] VITALS: BP 165/59
[2024-09-04] MEDS ORDERED: Furosemide 40 MG Tab PO SCH (09:00)
[2024-09-04 11:47] VITALS: BP 123/58
[2024-09-04 15:00] VITALS: BP 133/63
[2024-09-04 16:39] VITALS: BP 133/63
--- NOTE | 2024-09-04 18:06 | NUR ---
COBRA TRANSFER A&Ox4, CALLS AND COMMUNICATES NEEDS APPROPRIATELY. BP STABLE, SINUS WITH PACs 50-70's, DENIES CP/PRESSURE. SpO2> 92% ON RA WHILE AWAKE, 2L VIA NC WHILE ASLEEP, DENIES SOB. 1 ASSIST TO BSC, CONTINENT OF URINE AND BOWEL. R RADIAL SITE WNL, MILD OOZING UNCHANGED. NO C/O PAIN. HEPARIN gtt INFUSING PER EMAR MANAGED BY PHARMACY. REPORT GIVEN TO ACCEPTING RN. PT OUT OF ROOM AT APPROXIMATELY 1730. FAMILY NOTIFIED BY THIS RN.
== END 2024-09-04 17:43 | disposition short-term general hospital (02) | DRG 280 ==
LOC: ER 06:08 → PCU 06:09 → ER 14:39 → PCU 09-03 12:47
PROVIDERS: Emergency Medicine; Internal Medicine Cardiovascular Disease; ADMIT Internal Medicine
PROC: B2111ZZ Fluoroscopy of Multiple Coronary Arteries using Low Osmolar Contrast (ICD-10-PCS; principal; 2024-09-03)
PROC: 4A023N7 Measurement of Cardiac Sampling and Pressure, Left Heart, Percutaneous Approach (ICD-10-PCS; 2024-09-03)
DX: I21.4 Non-ST elevation (NSTEMI) myocardial infarction (principal); I50.23 Acute on chronic systolic (congestive) heart failure; I13.0 Hypertensive heart and chronic kidney disease with heart failure and stage 1 through stage 4 chronic kidney disease, or unspecified chronic kidney disease; N18.32 Chronic kidney disease, stage 3b; E03.9 Hypothyroidism, unspecified; I48.0 Paroxysmal atrial fibrillation; M35.3 Polymyalgia rheumatica; I35.0 Nonrheumatic aortic (valve) stenosis; E66.9 Obesity, unspecified; Z68.34 Body mass index [BMI] 34.0-34.9, adult; Z86.73 Personal history of transient ischemic attack (TIA), and cerebral infarction without residual deficits; I25.10 Atherosclerotic heart disease of native coronary artery without angina pectoris; Z91.040 Latex allergy status; Z91.048 Other nonmedicinal substance allergy status; Z88.2 Allergy status to sulfonamides; R29.6 Repeated falls; Z79.82 Long term (current) use of aspirin; Z79.890 Hormone replacement therapy; Z79.02 Long term (current) use of antithrombotics/antiplatelets; Z79.899 Other long term (current) drug therapy; G47.33 Obstructive sleep apnea (adult) (pediatric); Z90.49 Acquired absence of other specified parts of digestive tract; Z98.49 Cataract extraction status, unspecified eye; Z98.890 Other specified postprocedural states
CPT/HCPCS: 36415; 71045; 76937; 80048; 80053; 80061; 83880; 84484; 85025; 85520; 85610; 85730; 93005; 93010; 93308; 93321; 93454; 94760; 96374; 96375; 96376; 99285-25; A9270; C1769; C1894; G0378; J1644; J1940; J2250; J3010; J7030; J7050; Q9967

== ENCOUNTER 2024-09-20 16:56 | Inpatient (IN) | payer OTHER ==
[~2024-09-20] VITALS: Ht 162.6 cm; Wt 87.5 kg
[~2024-09-20 16:56] MED LIST changes: +ADALAT CC30 M1 PO
[2024-09-20] MEDS ORDERED: Morphine Sulfate 4 MG/1 ML Injection IV ONE (17:20)
[2024-09-20] MEDS ORDERED: Ondansetron HCl 2 MG / ML 2ML Vial IV ONE (17:20)
[2024-09-20 17:27] LABS: BASOPHILS ABSOLUTE AUTO 0.03 K/mm3 (0.00-0.23); BASOPHILS PERCENT AUTO 0 % (0-2); EOSINOPHILS ABSOLUTE AUTO 0.39 K/mm3 (0.00-0.68); EOSINOPHILS PERCENT AUTO 5 % (0-6); Hematocrit 36.8 % (33.0-51.0); IMMATURE GRAN ABSOLUTE AUTO 0.01 K/mm3 (0.00-0.10); IMMATURE GRAN PERCENT AUTO 0 % (0-1); LYMPHOCYTES ABSOLUTE AUTO 1.24 K/mm3 (0.84-5.20); LYMPHOCYTES PERCENT AUTO 16 % (21-46); MONOCYTES ABSOLUTE AUTO 0.94 K/mm3 (0.16-1.47); MONOCYTES PERCENT AUTO 12 % (4-13); Mean Corpuscular HGB 32.3 pg (26.0-34.0); Mean Corpuscular HGB Conc 32.6 g/dL (31.5-36.5); Mean Corpuscular Volume 99 fL (80-100); Mean Platelet Volume 9.6 fL (9.1-12.4); NEUTROPHILS ABSOLUTE AUTO 5.33 K/mm3 (1.96-9.15); NEUTROPHILS PERCENT AUTO 67 % (41-73); Platelet Count 252 K/mm3 (150-400); RDW Coefficient Variation 13.4 % (11.7-14.2); RDW Standard Deviation 49.5 fL (35.1-46.3); Red Blood Cell Count 3.71 M/mm3 (3.80-5.20); White Blood Cell Count 7.94 K/mm3 (4.00-11.30)
[2024-09-20 17:42] LABS: D-Dimer, Quantitative 1.6 mg/L FEU (0.00-0.52); International Normalized Ratio 1.01; Prothrombin Time Results 10.8 Sec (9.7-11.5)
[2024-09-20 17:47] LABS: Albumin/Globulin Ratio 0.7 (0.8-1.8); Bilirubin, Total 0.3 mg/dL (0.1-1.0); Bun/Creatinine Ratio 18.1 (12.0-20.0); Calcium, Blood 9.4 mg/dL (8.5-10.1); Creatinine, Blood 1.27 mg/dL (0.40-1.00); Globulin, Blood 4.2 g/dL (2.2-4.0); Potassium, Blood 4.5 mmol/L (3.5-5.5); Total Protein, Blood 7.2 g/dL (6.4-8.2)
[2024-09-20] MEDS ORDERED: CefTRIAXone Sodium 1,000 MG in NS 100 ML IV ONE (21:40)
[2024-09-20] MEDS ORDERED: Azithromycin 500 MG in NS 250 ML IV ONE (21:40)
[2024-09-20] MEDS ORDERED: Ipratropium/Albuterol SulF 2.5-0.5MG/3 ML Amp INH PRN (22:30)
[2024-09-20] MEDS ORDERED: Ondansetron HCl 2 MG / ML 2ML Vial IV PRN (22:30)
[2024-09-20] MEDS ORDERED: FentaNYL Citrate 50 MCG/ML 2 ML Injection IV PRN (22:30)
[2024-09-20] MEDS ORDERED: Acetaminophen 325 MG TABLET PO PRN (22:30)
[2024-09-20] MEDS ORDERED: Enoxaparin 40 MG/0.4 ML SYR SC SCH (23:00)
[2024-09-20 23:37] VITALS: BP 120/68
[2024-09-20] MEDS ORDERED: NS 250 ML IV PRN (23:45)
[2024-09-21 03:36] VITALS: BP 125/76
[2024-09-21 05:19] LABS: BASOPHILS ABSOLUTE AUTO 0.02 K/mm3 (0.00-0.23); BASOPHILS PERCENT AUTO 0 % (0-2); EOSINOPHILS ABSOLUTE AUTO 0.25 K/mm3 (0.00-0.68); EOSINOPHILS PERCENT AUTO 3 % (0-6); Hemoglobin 11.2 g/dL (11.5-16.0); IMMATURE GRAN ABSOLUTE AUTO 0.02 K/mm3 (0.00-0.10); IMMATURE GRAN PERCENT AUTO 0 % (0-1); LYMPHOCYTES ABSOLUTE AUTO 0.55 K/mm3 (0.84-5.20); LYMPHOCYTES PERCENT AUTO 6 % (21-46); MONOCYTES ABSOLUTE AUTO 0.67 K/mm3 (0.16-1.47); MONOCYTES PERCENT AUTO 7 % (4-13); Mean Corpuscular HGB 32.3 pg (26.0-34.0); Mean Corpuscular Volume 101 fL (80-100); Mean Platelet Volume 9.9 fL (9.1-12.4); NEUTROPHILS ABSOLUTE AUTO 7.57 K/mm3 (1.96-9.15); NEUTROPHILS PERCENT AUTO 83 % (41-73); Platelet Count 247 K/mm3 (150-400); RDW Coefficient Variation 13.4 % (11.7-14.2); RDW Standard Deviation 49.7 fL (35.1-46.3); Red Blood Cell Count 3.47 M/mm3 (3.80-5.20); White Blood Cell Count 9.08 K/mm3 (4.00-11.30)
--- NOTE | 2024-09-21 05:25 | NUR ---
SHIFT SUMMARY PT ARRIVED FROM ER AROUND 2330. ORIENTED TO ROOM. PT DENIED PAIN BUT DID C/O OF NAUSEA. MEDICATED PER EMAR WITH GOOD EFFECT. PT VERY SOMNOLENT UPON ARRIVAL. ON 2L OF OXYGEN AND SATING >95%, PT STATES SHE DOES NOT USE OXYGEN AT HOME. SMALL STAGE 2 ULCER, ABOUT 1 CM IN SIZE, NOTED ON LEFT BUTTOCK. PICTURE IN CHART AND HOSPITALIST NOTIFIED. PT ON TELE RUNNING SINUS ARRHYTHMIA IN THE 70's WITH A PVC. SOME QT ELONGATIONS NOTED IN ER AND UPON ARRIVING TO FLOOR. PROVIDER AWARE AND NO ORDERS AT THIS TIME. COVID SWAB COLLECTED AND SENT TO LAB. PT IN ISO PERCATION PER POLICY. VSS. INCENTIVE SPIROMETER AT BEDSIDE. PT SLEPT T/O NIGHT. BED ALARM ON. BED IN LOWEST POSITION AND CALL LIGHT IN REACH.
[2024-09-21 05:59] LABS: Albumin, Blood 2.9 g/dL (3.4-5.0); Albumin/Globulin Ratio 0.7 (0.8-1.8); Bilirubin, Total 0.4 mg/dL (0.1-1.0); Bun/Creatinine Ratio 17.9 (12.0-20.0); Creatinine, Blood 1.4 mg/dL (0.40-1.00); Globulin, Blood 4.2 g/dL (2.2-4.0); Potassium, Blood 4.7 mmol/L (3.5-5.5); Total Protein, Blood 7.1 g/dL (6.4-8.2)
[2024-09-21 06:05] LABS: Influenza A, PCR NEGATIVE (NEGATIVE); Influenza B, PCR NEGATIVE (NEGATIVE); Resp Syncytial Virus, PCR NEGATIVE (NEGATIVE); SARS-Cov-2 (COVID-19) PCR, MMC NEGATIVE (NEGATIVE)
[2024-09-21 08:18] VITALS: BP 93/83
[2024-09-21 08:19] VITALS: BP 93/83
[2024-09-21 08:49] LABS: Source, Urine Clean Catch
[2024-09-21 08:53] LABS: Appearance, Urine Clear (Clear); Bilirubin, Urine Neg (Neg); Blood, Urine Neg (Neg); Glucose Qualitative, Urine 4+ (Neg); Ketones, Urine Neg (Neg); Leukocyte Esterase, Urine Neg (Neg); Nitrite, Urine Neg (Neg); Protein, Urine 1+ (Neg); Urobilinogen, Urine NORM (Normal)
[2024-09-21 08:57] LABS: Color, Urine Pale Yellow (P-Yellow)
[2024-09-21] MEDS ORDERED: Clopidogrel Bisulfate 75 MG Tab PO SCH (10:30)
[2024-09-21] MEDS ORDERED: CLOP75 PO (10:32)
[2024-09-21] MEDS ORDERED: LOSA50 PO (10:41)
[2024-09-21] MEDS ORDERED: SPIR25 PO (10:41)
[2024-09-21] MEDS ORDERED: JARDIANCE10 MG PO (10:42)
[2024-09-21 10:47] LABS: Adenovirus Not Detected (NOT DETECT); Bordetella pertussis Not Detected (NOT DETECT); Chlamydophila pneumoniae Not Detected (NOT DETECT); Coronavirus 229E Not Detected (NOT DETECT); Coronavirus HKU1 Not Detected (NOT DETECT); Coronavirus NL63 Not Detected (NOT DETECT); Coronavirus OC43 Not Detected (NOT DETECT); Human Metapneumovirus Not Detected (NOT DETECT); Human Rhinovirus/Enterovirus Detected (NOT DETECT); Influenza A/2009-H1 Not Detected (NOT DETECT); Influenza A/H1 Not Detected (NOT DETECT); Influenza A/H3 Not Detected (NOT DETECT); Influenza B Not Detected (NOT DETECT); Mycoplasma pneumoniae Not Detected (NOT DETECT); Parainfluenza Virus 1 Not Detected (NOT DETECT); Parainfluenza Virus 2 Not Detected (NOT DETECT); Parainfluenza Virus 3 Not Detected (NOT DETECT); Parainfluenza Virus 4 Not Detected (NOT DETECT); Respiratory Syncytial Virus Not Detected (NOT DETECT); SARS-Cov-2 (COVID-19), BioFire Not Detected (NOT DETECT)
[2024-09-21 17:23] VITALS: BP 130/59
--- NOTE | 2024-09-21 18:10 | NUR ---
PT A&OX4, BUT FORGETFUL. SR IN 70S WITH PVCS ON TELE. 2L O2 WHEN SLEEPING D/T DESATTING. PT DENIES PAIN, 1 PA TO CHAIR AND BSC. NEED TO COLLECT SPUTUM SAMPLE, PT STATES UNPRODUCTIVE COUGH. PT ABLE TO MAKE NEEDS KNOWN, CALL LIGHT IN REACH.
[2024-09-21 19:39] VITALS: BP 121/44
[2024-09-21] MEDS ORDERED: CefTRIAXone Sodium 1,000 MG in NS 100 ML IV SCH (21:00)
[2024-09-21] MEDS ORDERED: Azithromycin 500 MG in NS 250 ML IV SCH (21:00)
[2024-09-21 23:34] VITALS: BP 140/60
[2024-09-22 03:37] VITALS: BP 131/59
[2024-09-22 08:43] VITALS: BP 118/61
[2024-09-22] MEDS ORDERED: PARoxetine HCl 20 MG Tab PO SCH (09:00)
[2024-09-22] MEDS ORDERED: Spironolactone 25 MG Tab PO SCH (09:00)
[2024-09-22] MEDS ORDERED: Losartan Potassium 50 MG Tab PO SCH (09:00)
[2024-09-22] MEDS ORDERED: Aspirin 81 MG Chew PO SCH (09:00)
[2024-09-22] MEDS ORDERED: Levothyroxine Sodium 0.025 MG Tab PO SCH (09:00)
[2024-09-22] MEDS ORDERED: Empagliflozin 10 MG TAB PO SCH (09:00)
[2024-09-22] MEDS ORDERED: Metoprolol Succinate 25 MG TABCR PO SCH (09:00)
[2024-09-22] MEDS ORDERED: Metoprolol Succinate 50 MG TABCR PO SCH (09:00)
[2024-09-22] MEDS ORDERED: Atorvastatin 40 MG Tab PO SCH (09:00)
[2024-09-22 09:04] LABS: BASOPHILS ABSOLUTE AUTO 0.02 K/mm3 (0.00-0.23); BASOPHILS PERCENT AUTO 0 % (0-2); EOSINOPHILS ABSOLUTE AUTO 0.36 K/mm3 (0.00-0.68); EOSINOPHILS PERCENT AUTO 6 % (0-6); Hematocrit 36.3 % (33.0-51.0); Hemoglobin 11.4 g/dL (11.5-16.0); IMMATURE GRAN ABSOLUTE AUTO 0.01 K/mm3 (0.00-0.10); IMMATURE GRAN PERCENT AUTO 0 % (0-1); LYMPHOCYTES ABSOLUTE AUTO 0.75 K/mm3 (0.84-5.20); LYMPHOCYTES PERCENT AUTO 12 % (21-46); MONOCYTES ABSOLUTE AUTO 0.59 K/mm3 (0.16-1.47); MONOCYTES PERCENT AUTO 9 % (4-13); Mean Corpuscular HGB 32.4 pg (26.0-34.0); Mean Corpuscular HGB Conc 31.4 g/dL (31.5-36.5); Mean Corpuscular Volume 103 fL (80-100); Mean Platelet Volume 9.8 fL (9.1-12.4); NEUTROPHILS ABSOLUTE AUTO 4.68 K/mm3 (1.96-9.15); NEUTROPHILS PERCENT AUTO 73 % (41-73); Platelet Count 234 K/mm3 (150-400); RDW Coefficient Variation 13.4 % (11.7-14.2); Red Blood Cell Count 3.52 M/mm3 (3.80-5.20); White Blood Cell Count 6.41 K/mm3 (4.00-11.30)
[2024-09-22 09:31] LABS: Bun/Creatinine Ratio 16.5 (12.0-20.0); Calcium, Blood 9.7 mg/dL (8.5-10.1); Creatinine, Blood 1.33 mg/dL (0.40-1.00); Potassium, Blood 4.5 mmol/L (3.5-5.5)
[2024-09-22 12:49] VITALS: BP 128/62
[2024-09-22] MEDS ORDERED: ZINC OXIDE/PETROLATUM, YELLOW 1 APPLIC/71 GM PASTE TOP PRN (12:50)
[2024-09-22] MEDS ORDERED: Polyethylene Glycol 3350 17 gm PO SCH (16:00)
[2024-09-22 16:37] VITALS: BP 138/53
--- NOTE | 2024-09-22 18:47 | NUR ---
SUMMARY PATIENT ANSWERING ORIENTATION QUESTIONS CORRECTLY BUT SEEMS FORGETFUL AT TIMES. PT EVAL TODAY. ST EVAL TODAY. BASIC WOUND CARE ORDER SET PER PROTOCOL. PLACED ZINC OXIDE PASTE TO SABRINA ll ULCER TO LEFT BUTTOCK. REPOSITIONING IN BED. UP TO CHAIR THIS EVENING. PT SLEPT MAJORITY OF DAY. REPORTED HAD NOT HAD A BM FOR A COUPLE DAYS. NOTIFIED, BOWEL REGIMEN STARTED.
[2024-09-22 19:22] VITALS: BP 124/55
[2024-09-22] MEDS ORDERED: Docusate Sodium 100 MG Cap PO SCH (21:00)
[2024-09-22 23:50] VITALS: BP 136/57
[2024-09-23 03:56] VITALS: BP 131/67
--- NOTE | 2024-09-23 04:45 | NUR ---
SHIFT SUMMARY PT ALERT ORIENTED WITH INTERTMITTENT CONFUSION. ABLE TO CALL FOR HELP. AMBULATES TO THE BATHROOM WITH SBA AND WALKER. SHE HAS A STAGE 2 TO HER COCCYX. REMAINS ON ROCEPHIN AND ZITHROMAX ORDERED. HER RESP PANEL SHOWED RHONOVIRUS. REMAINS ON TEMETRY AT NSR AT 69 WITH PACS. VSS SATTING AT 91% ON 2L. RESTING IN BED AT THIS TIME WITH CALL LIGHT IN REACH
[2024-09-23 07:25] VITALS: BP 145/87
[2024-09-23 07:26] VITALS: BP 145/87
[2024-09-23] MEDS ORDERED: Losartan Potassium 25 MG Tab PO SCH (09:00)
[2024-09-23 11:45] VITALS: BP 141/79
[2024-09-23] MEDS ORDERED: DOC250 PO (12:22)
[2024-09-23] MEDS ORDERED: Acetaminophen650 M1 (12:23)
[2024-09-23] MEDS ORDERED: MIRALAX17 GM (12:23)
[2024-09-23] MEDS ORDERED: DOCU100 PO (12:23)
[2024-09-23] MEDS ORDERED: VISBIOME 112.51 EACH (12:24)
[2024-09-23] MEDS ORDERED: VISBIOME 112.51 EACH PO (12:24)
[2024-09-23] MEDS ORDERED: AMOCLA500 PO (12:25)
--- NOTE | 2024-09-23 14:59 | NUR ---
DISCHARGE PT WITH DAUGHTER DISCHARGED TO HOME. DENIED PAIN OR SOB. VERBALIZED UNDERSTANDING TO DISCHARGE INSTRUCTIONS.
[2024-09-23] MEDS ORDERED: Lactobacil 2-S.Thermo-Bifido 1 1 Cap PO SCH (21:00)
== END 2024-09-23 14:19 | disposition home or self-care (01) | DRG 193 ==
LOC: ER 16:56 → ERHOLD 21:56 → MEDS 21:56
PROVIDERS: Internal Medicine; Student in an Organized Health Care Education/Training Program; ADMIT Internal Medicine
DX: J18.9 Pneumonia, unspecified organism (principal); J96.01 Acute respiratory failure with hypoxia; I50.32 Chronic diastolic (congestive) heart failure; I13.0 Hypertensive heart and chronic kidney disease with heart failure and stage 1 through stage 4 chronic kidney disease, or unspecified chronic kidney disease; N18.32 Chronic kidney disease, stage 3b; E03.9 Hypothyroidism, unspecified; I48.0 Paroxysmal atrial fibrillation; I35.0 Nonrheumatic aortic (valve) stenosis; B97.89 Other viral agents as the cause of diseases classified elsewhere; G47.33 Obstructive sleep apnea (adult) (pediatric); M35.3 Polymyalgia rheumatica; Z96.641 Presence of right artificial hip joint; I25.2 Old myocardial infarction; Z86.73 Personal history of transient ischemic attack (TIA), and cerebral infarction without residual deficits; Z95.5 Presence of coronary angioplasty implant and graft; Z88.2 Allergy status to sulfonamides; Z91.040 Latex allergy status; Z79.82 Long term (current) use of aspirin; Z79.890 Hormone replacement therapy
CPT/HCPCS: 0202U; 0241U; 36415; 71045; 71260; 80048; 80053; 83690; 83880; 84145; 84484; 85025; 85379; 85610; 85730; 87070; 87205; 92610; 93005; 93010; 94761; 96374-59; 97116; 97162; 97530; 99285-25; A9270; J0456; J0696; J1650; J2270; J2405; J7050; Q9967

== ENCOUNTER → 2024-10-02 | Outpatient (CLI) | payer OTHER ==
[~2024-10-02] MED LIST changes: +AMOCLA500 PO; +Acetaminophen650 M1; +DOC250 PO; +LOSA50 PO; +MIRALAX17 GM; +SPIR25 PO; +VISBIOME 112.51 EACH; +VISBIOME 112.51 EACH PO
[2024-10-03 10:13] LABS: BASOPHILS ABSOLUTE AUTO 0.07 K/mm3 (0.00-0.23); BASOPHILS PERCENT AUTO 1 % (0-2); EOSINOPHILS ABSOLUTE AUTO 0.38 K/mm3 (0.00-0.68); EOSINOPHILS PERCENT AUTO 5 % (0-6); Hematocrit 38.7 % (33.0-51.0); Hemoglobin 12.4 g/dL (11.5-16.0); IMMATURE GRAN ABSOLUTE AUTO 0.02 K/mm3 (0.00-0.10); IMMATURE GRAN PERCENT AUTO 0 % (0-1); LYMPHOCYTES ABSOLUTE AUTO 1.34 K/mm3 (0.84-5.20); LYMPHOCYTES PERCENT AUTO 18 % (21-46); MONOCYTES ABSOLUTE AUTO 0.75 K/mm3 (0.16-1.47); MONOCYTES PERCENT AUTO 10 % (4-13); Mean Corpuscular HGB 31.7 pg (26.0-34.0); Mean Corpuscular Volume 99 fL (80-100); Mean Platelet Volume 9.9 fL (9.1-12.4); NEUTROPHILS ABSOLUTE AUTO 5.09 K/mm3 (1.96-9.15); NEUTROPHILS PERCENT AUTO 67 % (41-73); Platelet Count 407 K/mm3 (150-400); RDW Coefficient Variation 13.3 % (11.7-14.2); Red Blood Cell Count 3.91 M/mm3 (3.80-5.20); White Blood Cell Count 7.65 K/mm3 (4.00-11.30)
[2024-10-03 11:23] LABS: Albumin, Blood 3.8 g/dL (3.4-5.0); Bilirubin, Total 0.4 mg/dL (0.1-1.0); Bun/Creatinine Ratio 16.6 (12.0-20.0); Calcium, Blood 9.8 mg/dL (8.5-10.1); Creatinine, Blood 1.69 mg/dL (0.40-1.00); Globulin, Blood 3.9 g/dL (2.2-4.0); Potassium, Blood 4.5 mmol/L (3.5-5.5); Total Protein, Blood 7.7 g/dL (6.4-8.2)
== END ==
LOC: LAB SHORT 15:23 → LAB 15:23
PROVIDERS: Student in an Organized Health Care Education/Training Program
DX: I35.0 Nonrheumatic aortic (valve) stenosis (principal); N18.4 Chronic kidney disease, stage 4 (severe)
CPT/HCPCS: 80053; 85025

== ENCOUNTER → 2024-10-06 | Outpatient (CLI) | payer OTHER ==
[2024-10-06 10:39] LABS: Source, Urine Voided
[2024-10-06 11:32] LABS: Appearance, Urine Hazy (Clear); Bilirubin, Urine Neg (Neg); Blood, Urine 5+ (Neg); Color, Urine Yellow (P-Yellow); Glucose Qualitative, Urine 4+ (Neg); Ketones, Urine Neg (Neg); Leukocyte Esterase, Urine 3+ (Neg); Nitrite, Urine Neg (Neg); Protein, Urine 2+ (Neg); Urobilinogen, Urine NORM (Normal)
[2024-10-06 11:49] LABS: Bacteria Many /hpf; Red Blood Cells, Urine 25-50 /hpf (0-2); Squamous Epithelial Cells Few /hpf (Few)
== END ==
LOC: LAB 10:32 → LAB SHORT 10:32
PROVIDERS: Student in an Organized Health Care Education/Training Program
DX: I35.0 Nonrheumatic aortic (valve) stenosis (principal); N18.4 Chronic kidney disease, stage 4 (severe); R41.0 Disorientation, unspecified
CPT/HCPCS: 81001; 87077; 87086; 87186

== ENCOUNTER 2024-10-19 07:36 | Emergency (ER) | payer OTHER ==
[~2024-10-19] VITALS: Ht 170.2 cm; Wt 81.7 kg
[2024-10-19 09:01] LABS: Albumin, Blood 3.2 g/dL (3.4-5.0); Albumin/Globulin Ratio 0.9 (0.8-1.8); Bilirubin, Total 0.3 mg/dL (0.1-1.0); Bun/Creatinine Ratio 17.5 (12.0-20.0); Calcium, Blood 9.3 mg/dL (8.5-10.1); Creatinine, Blood 1.37 mg/dL (0.40-1.00); Globulin, Blood 3.7 g/dL (2.2-4.0); Potassium, Blood 4.3 mmol/L (3.5-5.5); Total Protein, Blood 6.9 g/dL (6.4-8.2)
[2024-10-19 09:19] LABS: BASOPHILS ABSOLUTE AUTO 0.02 K/mm3 (0.00-0.23); BASOPHILS PERCENT AUTO 0 % (0-2); EOSINOPHILS ABSOLUTE AUTO 0.32 K/mm3 (0.00-0.68); EOSINOPHILS PERCENT AUTO 6 % (0-6); Hematocrit 31.8 % (33.0-51.0); Hemoglobin 10.7 g/dL (11.5-16.0); IMMATURE GRAN ABSOLUTE AUTO 0.02 K/mm3 (0.00-0.10); IMMATURE GRAN PERCENT AUTO 0 % (0-1); LYMPHOCYTES ABSOLUTE AUTO 0.67 K/mm3 (0.84-5.20); LYMPHOCYTES PERCENT AUTO 12 % (21-46); MONOCYTES ABSOLUTE AUTO 0.62 K/mm3 (0.16-1.47); MONOCYTES PERCENT AUTO 11 % (4-13); Mean Corpuscular HGB 32.8 pg (26.0-34.0); Mean Corpuscular HGB Conc 33.6 g/dL (31.5-36.5); Mean Corpuscular Volume 98 fL (80-100); Mean Platelet Volume 9.5 fL (9.1-12.4); NEUTROPHILS PERCENT AUTO 70 % (41-73); Platelet Count 177 K/mm3 (150-400); RDW Coefficient Variation 13.5 % (11.7-14.2); RDW Standard Deviation 48.6 fL (35.1-46.3); Red Blood Cell Count 3.26 M/mm3 (3.80-5.20); White Blood Cell Count 5.55 K/mm3 (4.00-11.30)
[2024-10-19 13:00] VITALS: BP 109/71
== END 2024-10-19 13:10 | disposition home or self-care (01) ==
LOC: ER 07:36
PROVIDERS: Emergency Medicine; Student in an Organized Health Care Education/Training Program
DX: R07.89 Other chest pain (principal); I12.9 Hypertensive chronic kidney disease with stage 1 through stage 4 chronic kidney disease, or unspecified chronic kidney disease; N18.30 Chronic kidney disease, stage 3 unspecified; Z79.82 Long term (current) use of aspirin; Z79.02 Long term (current) use of antithrombotics/antiplatelets; Z79.899 Other long term (current) drug therapy; Z91.040 Latex allergy status; Z88.2 Allergy status to sulfonamides; Z91.048 Other nonmedicinal substance allergy status
CPT/HCPCS: 71046; 80053; 83880; 84484; 85025; 93005; 93010; 99285-25

== ENCOUNTER 2024-11-26 16:56 | Emergency (ER) | payer OTHER ==
[~2024-11-26] VITALS: Ht 162.6 cm; Wt 76.2 kg
[2024-11-26 17:55] VITALS: BP 116/58
== END 2024-11-26 17:55 | disposition home or self-care (01) ==
LOC: ER 16:56
DX: I97.620 Postprocedural hemorrhage of a circulatory system organ or structure following other procedure (principal); I13.0 Hypertensive heart and chronic kidney disease with heart failure and stage 1 through stage 4 chronic kidney disease, or unspecified chronic kidney disease; I50.42 Chronic combined systolic (congestive) and diastolic (congestive) heart failure; N18.30 Chronic kidney disease, stage 3 unspecified; G43.909 Migraine, unspecified, not intractable, without status migrainosus; E03.9 Hypothyroidism, unspecified; I48.91 Unspecified atrial fibrillation; Z79.01 Long term (current) use of anticoagulants; Z79.899 Other long term (current) drug therapy; Z79.82 Long term (current) use of aspirin; Z91.040 Latex allergy status; Z88.2 Allergy status to sulfonamides; Z91.048 Other nonmedicinal substance allergy status
CPT/HCPCS: 99282

== ENCOUNTER 2024-12-06 11:37 | Emergency (ER) | payer OTHER ==
[~2024-12-06] VITALS: Ht 162.6 cm; Wt 84.4 kg
[2024-12-06 13:45] LABS: Source, Urine Straight Cath
[2024-12-06 14:05] LABS: Bilirubin, Urine Neg (Neg); Glucose Qualitative, Urine 4+ (Neg); Ketones, Urine Neg (Neg); Leukocyte Esterase, Urine Neg (Neg); Protein, Urine Neg (Neg); Specific Gravity, Urine 1.015 (1.003-1.022); Urobilinogen, Urine NORM (Normal)
[2024-12-06 14:15] LABS: Color, Urine Pale Yellow (P-Yellow)
[2024-12-06 15:30] VITALS: BP 130/70
== END 2024-12-06 15:54 | disposition home or self-care (01) ==
LOC: ER 11:37
PROVIDERS: Student in an Organized Health Care Education/Training Program
DX: S00.01XA Abrasion of scalp, initial encounter (principal); N95.0 Postmenopausal bleeding; N89.8 Other specified noninflammatory disorders of vagina; I13.0 Hypertensive heart and chronic kidney disease with heart failure and stage 1 through stage 4 chronic kidney disease, or unspecified chronic kidney disease; I50.42 Chronic combined systolic (congestive) and diastolic (congestive) heart failure; N18.30 Chronic kidney disease, stage 3 unspecified; Z95.2 Presence of prosthetic heart valve; Z96.641 Presence of right artificial hip joint; W22.8XXA Striking against or struck by other objects, initial encounter; Z88.2 Allergy status to sulfonamides; Z91.040 Latex allergy status; Z79.82 Long term (current) use of aspirin; Z79.899 Other long term (current) drug therapy; Z79.2 Long term (current) use of antibiotics; Z79.890 Hormone replacement therapy
CPT/HCPCS: 51701; 70450; 72125; 76830; 76856; 81003; 93005; 93010; 99284-25

== ENCOUNTER 2024-12-19 11:33 | Emergency (ER) | payer OTHER ==
[~2024-12-19] VITALS: Ht 162.6 cm; Wt 84.8 kg
[2024-12-19 12:29] VITALS: BP 147/67
== END 2024-12-19 13:40 | disposition home or self-care (01) ==
LOC: ER 11:33
DX: S09.90XA Unspecified injury of head, initial encounter (principal); E03.9 Hypothyroidism, unspecified; I10 Essential (primary) hypertension; W01.0XXA Fall on same level from slipping, tripping and stumbling without subsequent striking against object, initial encounter; Z79.82 Long term (current) use of aspirin; Z79.899 Other long term (current) drug therapy; Z91.040 Latex allergy status; Z88.2 Allergy status to sulfonamides; Z91.048 Other nonmedicinal substance allergy status
CPT/HCPCS: 70450

== ENCOUNTER → 2024-12-23 | Outpatient (CLI) | payer OTHER ==
[2024-12-23 19:50] LABS: Bacterial Vaginosis PCR Negative (NEGATIVE); Candida Group, PCR DETECTED (NOT DETECT); Candida glabrata-krusei, PCR NOT DETECTED (NOT DETECT)
== END ==
LOC: LAB SHORT 16:04 → LAB 16:04
PROVIDERS: Obstetrics & Gynecology
DX: N76.0 Acute vaginitis (principal)
CPT/HCPCS: 81515

== ENCOUNTER → 2024-12-23 | Outpatient (CLI) | payer OTHER | LOC: LAB 08:19 → LAB SHORT 08:19 | DX: N89.8 Other specified noninflammatory disorders of vagina (principal) | CPT/HCPCS: 88305; 88312 ==

== ENCOUNTER 2025-01-02 20:49 | Emergency (ER) | payer OTHER ==
[~2025-01-02] VITALS: Ht 162.6 cm; Wt 81.2 kg
[2025-01-03 00:30] VITALS: BP 141/100
== END 2025-01-03 00:56 | disposition home or self-care (01) ==
LOC: ER 20:49
DX: S06.2X0A Diffuse traumatic brain injury without loss of consciousness, initial encounter (principal); S16.1XXA Strain of muscle, fascia and tendon at neck level, initial encounter; R55 Syncope and collapse; Z79.01 Long term (current) use of anticoagulants; I13.0 Hypertensive heart and chronic kidney disease with heart failure and stage 1 through stage 4 chronic kidney disease, or unspecified chronic kidney disease; I50.40 Unspecified combined systolic (congestive) and diastolic (congestive) heart failure; N18.30 Chronic kidney disease, stage 3 unspecified; Z91.040 Latex allergy status; Z88.2 Allergy status to sulfonamides; Z79.2 Long term (current) use of antibiotics; Z79.899 Other long term (current) drug therapy; G47.33 Obstructive sleep apnea (adult) (pediatric)
CPT/HCPCS: 70450; 72125; 93005; 93010; 99284-25; A9270

== ENCOUNTER 2025-01-22 14:54 | Emergency (ER) | payer OTHER ==
[~2025-01-22] VITALS: Ht 162.6 cm; Wt 84.8 kg
[2025-01-22 15:20] LABS: Source, Urine Clean Catch
[2025-01-22 15:25] LABS: Bilirubin, Urine Neg (Neg); Color, Urine Yellow (P-Yellow); Glucose Qualitative, Urine 4+ (Neg); Ketones, Urine 1+ (Neg); Leukocyte Esterase, Urine 2+ (Neg); Protein, Urine 2+ (Neg); Specific Gravity, Urine 1.020 (1.003-1.022); Urobilinogen, Urine NORM (Normal)
[2025-01-22 15:35] LABS: BASOPHILS ABSOLUTE AUTO 0.02 K/mm3 (0.00-0.23); BASOPHILS PERCENT AUTO 0 % (0-2); EOSINOPHILS ABSOLUTE AUTO 0.15 K/mm3 (0.00-0.68); EOSINOPHILS PERCENT AUTO 2 % (0-6); Hematocrit 41.1 % (33.0-51.0); Hemoglobin 13.6 g/dL (11.5-16.0); IMMATURE GRAN ABSOLUTE AUTO 0.02 K/mm3 (0.00-0.10); IMMATURE GRAN PERCENT AUTO 0 % (0-1); LYMPHOCYTES ABSOLUTE AUTO 1.13 K/mm3 (0.84-5.20); LYMPHOCYTES PERCENT AUTO 12 % (21-46); MONOCYTES ABSOLUTE AUTO 0.80 K/mm3 (0.16-1.47); MONOCYTES PERCENT AUTO 9 % (4-13); Mean Corpuscular HGB Conc 33.1 g/dL (31.5-36.5); Mean Corpuscular Volume 98 fL (80-100); NEUTROPHILS ABSOLUTE AUTO 7.10 K/mm3 (1.96-9.15); NEUTROPHILS PERCENT AUTO 77 % (41-73); NRBC ABSOLUTE 0.00 K/mm3 (0.00-0.02); NRBC Auto 0.0 /100 WBC (0.0-0.2); Platelet Count 235 K/mm3 (150-400); RDW Coefficient Variation 13.3 % (11.7-14.2); RDW Standard Deviation 48.0 fL (35.1-46.3)
[2025-01-22 15:41] LABS: Red Blood Cells, Urine 0-2 /hpf (0-2)
[2025-01-22 15:55] LABS: Alanine Aminotransfer (ALT/SGP 16.0 U/L (12-78); Albumin, Blood 3.9 g/dL (3.4-5.0); Albumin/Globulin Ratio 1.0 (0.8-1.8); Anion Gap 10.0 mmol/L (3-11); Aspartate Aminotrans (AST/SGOT 19.0 U/L (12-37); Bilirubin, Total 0.7 mg/dL (0.1-1.0); Blood Urea Nitrogen 28.0 mg/dL (8-24); CO2, Blood 23.0 mmol/L (21-32); Calcium, Blood 10.4 mg/dL (8.5-10.1); Chloride, Blood 105.0 mmol/L (98-108); Creatinine, Blood 1.73 mg/dL (0.40-1.00); Globulin, Blood 4.1 g/dL (2.2-4.0); Glucose, Blood 213.0 mg/dL (70-99); Potassium, Blood 4.5 mmol/L (3.5-5.5); Sodium, Blood 133.0 mmol/L (136-145); Total Protein, Blood 8.0 g/dL (6.4-8.2)
[2025-01-22] MEDS ORDERED: Ondansetron HCl 2 MG / ML 2ML Vial IV ONE (18:55)
[2025-01-22 19:30] VITALS: BP 104/88
[2025-01-22] MEDS ORDERED: ONDA4ODT MM (20:07)
[2025-01-22] MEDS ORDERED: DICY20 PO (20:07)
== END 2025-01-22 20:32 | disposition home or self-care (01) ==
LOC: ER 14:54
PROVIDERS: Student in an Organized Health Care Education/Training Program
DX: K52.9 Noninfective gastroenteritis and colitis, unspecified (principal); I12.9 Hypertensive chronic kidney disease with stage 1 through stage 4 chronic kidney disease, or unspecified chronic kidney disease; N18.9 Chronic kidney disease, unspecified; E87.1 Hypo-osmolality and hyponatremia; E03.9 Hypothyroidism, unspecified; Z86.73 Personal history of transient ischemic attack (TIA), and cerebral infarction without residual deficits; Z91.040 Latex allergy status; Z88.2 Allergy status to sulfonamides; Z91.048 Other nonmedicinal substance allergy status; Z79.82 Long term (current) use of aspirin; Z79.02 Long term (current) use of antithrombotics/antiplatelets; Z79.84 Long term (current) use of oral hypoglycemic drugs; Z79.890 Hormone replacement therapy; Z79.899 Other long term (current) drug therapy
CPT/HCPCS: 74177; 80053; 81001; 83690; 85025; 87086; 93005; 93010; 96374-59; 99284-25; A9270; J2405; Q9967

== ENCOUNTER 2025-01-30 03:27 | Observation (INO) | payer OTHER ==
[~2025-01-30] VITALS: Ht 162.6 cm; Wt 85.7 kg
[~2025-01-30 03:27] MED LIST changes: -Acetaminophen650 M1; +DICY20 PO; +ONDA4ODT MM
[2025-01-30] MEDS ORDERED: TRAZ50 PO (04:02)
[2025-01-30] MEDS ORDERED: HYDHCL25 PO (04:02)
[2025-01-30 06:53] LABS: BASOPHILS ABSOLUTE AUTO 0.02 K/mm3 (0.00-0.23); BASOPHILS PERCENT AUTO 0 % (0-2); EOSINOPHILS ABSOLUTE AUTO 0.32 K/mm3 (0.00-0.68); EOSINOPHILS PERCENT AUTO 5 % (0-6); Hematocrit 36.1 % (33.0-51.0); Hemoglobin 11.7 g/dL (11.5-16.0); IMMATURE GRAN ABSOLUTE AUTO 0.03 K/mm3 (0.00-0.10); IMMATURE GRAN PERCENT AUTO 1 % (0-1); LYMPHOCYTES ABSOLUTE AUTO 1.06 K/mm3 (0.84-5.20); LYMPHOCYTES PERCENT AUTO 16 % (21-46); MONOCYTES ABSOLUTE AUTO 0.62 K/mm3 (0.16-1.47); MONOCYTES PERCENT AUTO 10 % (4-13); Mean Corpuscular HGB Conc 32.4 g/dL (31.5-36.5); Mean Corpuscular Volume 99 fL (80-100); NEUTROPHILS ABSOLUTE AUTO 4.48 K/mm3 (1.96-9.15); NEUTROPHILS PERCENT AUTO 69 % (41-73); NRBC ABSOLUTE 0.00 K/mm3 (0.00-0.02); NRBC Auto 0.0 /100 WBC (0.0-0.2); Platelet Count 197 K/mm3 (150-400); RDW Coefficient Variation 13.1 % (11.7-14.2); RDW Standard Deviation 47.9 fL (35.1-46.3)
[2025-01-30 07:11] LABS: Alanine Aminotransfer (ALT/SGP 19.0 U/L (12-78); Albumin, Blood 3.6 g/dL (3.4-5.0); Albumin/Globulin Ratio 1.0 (0.8-1.8); Anion Gap 8.0 mmol/L (3-11); Aspartate Aminotrans (AST/SGOT 18.0 U/L (12-37); Bilirubin, Total 0.4 mg/dL (0.1-1.0); Blood Urea Nitrogen 27.0 mg/dL (8-24); CO2, Blood 25.0 mmol/L (21-32); Calcium, Blood 9.2 mg/dL (8.5-10.1); Chloride, Blood 111.0 mmol/L (98-108); Creatinine, Blood 1.38 mg/dL (0.40-1.00); Globulin, Blood 3.6 g/dL (2.2-4.0); Glucose, Blood 126.0 mg/dL (70-99); Magnesium, Blood 1.4 mg/dL (1.6-2.4); Potassium, Blood 3.6 mmol/L (3.5-5.5); Sodium, Blood 140.0 mmol/L (136-145); Total Protein, Blood 7.2 g/dL (6.4-8.2)
[2025-01-30] MEDS ORDERED: Magnesium Sulf 2 GM/Water 50ML 50 ML IV ONE (07:30)
[2025-01-30 09:05] LABS: Source, Urine Clean Catch
[2025-01-30 09:09] LABS: Bilirubin, Urine Neg (Neg); Glucose Qualitative, Urine Neg (Neg); Ketones, Urine Neg (Neg); Leukocyte Esterase, Urine Neg (Neg); Protein, Urine Neg (Neg); Specific Gravity, Urine 1.015 (1.003-1.022); Urobilinogen, Urine NORM (Normal)
[2025-01-30 09:16] LABS: Color, Urine Pale Yellow (P-Yellow)
[2025-01-30 09:30] LABS: Red Blood Cells, Urine 0-2 /hpf (0-2); White Blood Cells, Urine 0-2 /hpf (0-5)
[2025-01-30 10:49] LABS: Thyroid Stimulating Hormone 4.51 uIU/mL (0.360-4.800)
[2025-01-30 15:07] VITALS: BP 114/61
[2025-01-30] MEDS ORDERED: Clopidogrel Bis75 MG PO (16:41)
--- NOTE | 2025-01-30 20:32 | NUR ---
DAUGHTER TO CHARGE STATING: ASKING FOR MRI RESULTS AND TO SEE DR MERRITT. LET HER KNOW DR MERRITT HAS GONE HOME FOR THE DAY BUT SAW HER IN THE ED. SHE WOULD STILL LIKE TO SEE THE PROVIDER. ALSO REQUESTING SEDATING MEDICATION FOR MOM BECAUSE SHE DOES NOT BELIEVE HER MOTHER IS GOING TO CALM DOWN AND CONTINUES TO HAVE HALLUCINATIONS. BEDSIDE NURSE, RBAD, TO CHARGE STATION. BRAD WILL CALL PROVIDER AND REQUEST ORDER FOR IV HALDOL AND TO COME DISCUSS MRI RESULTS WITH FAMILY.
[2025-01-30 20:40] VITALS: BP 136/87
[2025-01-31] VITALS (7 sets, daily range): BP systolic 109–142; BP diastolic 47–94
[2025-01-31 05:10] LABS: BASOPHILS ABSOLUTE AUTO 0.03 K/mm3 (0.00-0.23); BASOPHILS PERCENT AUTO 1 % (0-2); EOSINOPHILS ABSOLUTE AUTO 0.28 K/mm3 (0.00-0.68); EOSINOPHILS PERCENT AUTO 6 % (0-6); Hematocrit 33.8 % (33.0-51.0); Hemoglobin 10.9 g/dL (11.5-16.0); IMMATURE GRAN ABSOLUTE AUTO 0.01 K/mm3 (0.00-0.10); IMMATURE GRAN PERCENT AUTO 0 % (0-1); LYMPHOCYTES ABSOLUTE AUTO 0.98 K/mm3 (0.84-5.20); LYMPHOCYTES PERCENT AUTO 20 % (21-46); MONOCYTES ABSOLUTE AUTO 0.57 K/mm3 (0.16-1.47); MONOCYTES PERCENT AUTO 11 % (4-13); Mean Corpuscular HGB Conc 32.2 g/dL (31.5-36.5); Mean Corpuscular Volume 100 fL (80-100); NEUTROPHILS ABSOLUTE AUTO 3.16 K/mm3 (1.96-9.15); NEUTROPHILS PERCENT AUTO 63 % (41-73); NRBC ABSOLUTE 0.00 K/mm3 (0.00-0.02); NRBC Auto 0.0 /100 WBC (0.0-0.2); Platelet Count 184 K/mm3 (150-400); RDW Coefficient Variation 13.2 % (11.7-14.2); RDW Standard Deviation 48.3 fL (35.1-46.3)
[2025-01-31 05:30] LABS: Anion Gap 7.0 mmol/L (3-11); Blood Urea Nitrogen 23.0 mg/dL (8-24); CO2, Blood 24.0 mmol/L (21-32); Calcium, Blood 8.9 mg/dL (8.5-10.1); Chloride, Blood 111.0 mmol/L (98-108); Creatinine, Blood 1.42 mg/dL (0.40-1.00); Glucose, Blood 157.0 mg/dL (70-99); Potassium, Blood 4.0 mmol/L (3.5-5.5); Sodium, Blood 138.0 mmol/L (136-145)
--- NOTE | 2025-01-31 17:08 | NUR ---
PT FAMILY IN TO VISIT TODAY, DID STATE TO ME THAT SHE NOT SLEPT MORE THAN A FEW MINUTES DAILY OVER LAST FEW DAYS. PT AWAKENS EASILY, BUT READILY FALLS BACK TO SLEEP. DID NOT EAT LUNCH. DID EAT BKFST. DINNER NOT HERE YET. NO OTHER CONCERNS NOTED. BED IN LOW POSITION, CALL LITE IH REACH, BED ALARM ON FOR SAFETY.
[2025-02-01 00:02] VITALS: BP 125/63
[2025-02-01 04:28] VITALS: BP 103/55
--- NOTE | 2025-02-01 05:34 | NUR ---
SHIFT SUMMARY PT A&Ox3. PT VERY SOMNOLENT AND SLEPT T/O SHIFT ONLY WAKING BREIFLY DURING CARE. NO C/O PAIN. PT SINUS DAGOBERTO AT 58. DAUGHTER GIVEN UPDATE, WITH PT PERMISSION, AT START OF SHIFT. NO APPARENT EPISODES OF HALLUCINATIONS DURING THE NIGHT. VSS. BED ALARM ON. BED IN LOWEST POSITION AND CALL LIGHT IN REACH.
[2025-02-01 07:14] VITALS: BP 159/56
[2025-02-01] MEDS ORDERED: Seroquel Xr50 MG PO (14:05)
[2025-02-01] MEDS ORDERED: SPIR25 PO (14:06)
[2025-02-01] MEDS ORDERED: QUET25 PO (14:08)
--- NOTE | 2025-02-01 15:03 | NUR ---
DISCHARGE REVIEWED WITH PT AND DAUGHTER. PT VERBALIZED UNDERSTANDING MEDS AND INSTRUCT . AIDE TO REMOVE IV AND TELE. PT TO DRESS SELF. PT WHEELED TO DOOR AT 1505
== END 2025-02-01 15:05 | disposition home or self-care (01) ==
LOC: ER 03:27 → ERHOLD 10:36 → MEDS 10:36
PROVIDERS: Student in an Organized Health Care Education/Training Program; ADMIT Student in an Organized Health Care Education/Training Program
DX: R44.1 Visual hallucinations (principal); I50.23 Acute on chronic systolic (congestive) heart failure; I48.20 Chronic atrial fibrillation, unspecified; I25.10 Atherosclerotic heart disease of native coronary artery without angina pectoris; I13.0 Hypertensive heart and chronic kidney disease with heart failure and stage 1 through stage 4 chronic kidney disease, or unspecified chronic kidney disease; N18.32 Chronic kidney disease, stage 3b; E03.9 Hypothyroidism, unspecified; G47.00 Insomnia, unspecified; E83.42 Hypomagnesemia; Z95.2 Presence of prosthetic heart valve; Z91.81 History of falling; Z86.73 Personal history of transient ischemic attack (TIA), and cerebral infarction without residual deficits; Z88.2 Allergy status to sulfonamides; Z91.040 Latex allergy status; Z91.09 Other allergy status, other than to drugs and biological substances; Z79.01 Long term (current) use of anticoagulants; Z79.02 Long term (current) use of antithrombotics/antiplatelets; Z79.82 Long term (current) use of aspirin; Z79.890 Hormone replacement therapy; Z79.899 Other long term (current) drug therapy
CPT/HCPCS: 36415; 51798; 70450; 70551; 80048; 80053; 81001; 83735; 84439; 84443; 84481; 85025; 96365; 99285-25; A6590; A9270; G0378; J3475

== ENCOUNTER → 2025-02-19 | Outpatient (CLI) | payer OTHER ==
[~2025-02-19] MED LIST changes: +Clopidogrel Bis75 MG PO; +QUET25 PO; +Seroquel Xr50 MG PO; +TRAZ50 PO
[2025-02-19 11:11] LABS: Source, Urine Clean Catch
[2025-02-19 13:31] LABS: Bilirubin, Urine Neg (Neg); Color, Urine Yellow (P-Yellow); Glucose Qualitative, Urine Neg (Neg); Ketones, Urine Neg (Neg); Leukocyte Esterase, Urine 2+ (Neg); Protein, Urine 1+ (Neg); Specific Gravity, Urine 1.020 (1.003-1.022); Urobilinogen, Urine NORM (Normal)
== END ==
LOC: LAB 10:00 → LAB SHORT 10:00
PROVIDERS: Hospitalist
DX: N18.32 Chronic kidney disease, stage 3b (principal); R82.90 Unspecified abnormal findings in urine
CPT/HCPCS: 81001; 87077; 87086; 87186

== ENCOUNTER 2025-04-03 17:09 | Emergency (ER) | payer OTHER | END 2025-04-03 23:10 | disposition home or self-care (01) | LOC: ER 17:09 | DX: R44.1 Visual hallucinations (principal); G47.9 Sleep disorder, unspecified; E03.9 Hypothyroidism, unspecified; I13.0 Hypertensive heart and chronic kidney disease with heart failure and stage 1 through stage 4 chronic kidney disease, or unspecified chronic kidney disease; I50.42 Chronic combined systolic (congestive) and diastolic (congestive) heart failure; N18.30 Chronic kidney disease, stage 3 unspecified; G47.33 Obstructive sleep apnea (adult) (pediatric); Z79.899 Other long term (current) drug therapy; Z91.040 Latex allergy status; Z88.2 Allergy status to sulfonamides; Z91.048 Other nonmedicinal substance allergy status ==

== ENCOUNTER → 2025-04-08 | Outpatient (CLI) | payer OTHER | LOC: LAB SHORT 10:50 → LAB 10:50 | DX: R41.82 Altered mental status, unspecified (principal) | CPT/HCPCS: 87086 ==

== ENCOUNTER 2025-04-20 10:55 | Emergency (ER) | payer OTHER ==
[~2025-04-20] VITALS: Ht 162.6 cm; Wt 86.2 kg
[2025-04-20 12:06] LABS: BASOPHILS ABSOLUTE AUTO 0.04 K/mm3 (0.00-0.23); BASOPHILS PERCENT AUTO 1 % (0-2); EOSINOPHILS ABSOLUTE AUTO 0.27 K/mm3 (0.00-0.68); EOSINOPHILS PERCENT AUTO 4 % (0-6); Hematocrit 35.0 % (33.0-51.0); Hemoglobin 11.4 g/dL (11.5-16.0); IMMATURE GRAN ABSOLUTE AUTO 0.02 K/mm3 (0.00-0.10); IMMATURE GRAN PERCENT AUTO 0 % (0-1); LYMPHOCYTES ABSOLUTE AUTO 1.19 K/mm3 (0.84-5.20); LYMPHOCYTES PERCENT AUTO 16 % (21-46); MONOCYTES ABSOLUTE AUTO 0.67 K/mm3 (0.16-1.47); MONOCYTES PERCENT AUTO 9 % (4-13); Mean Corpuscular HGB Conc 32.6 g/dL (31.5-36.5); Mean Corpuscular Volume 100 fL (80-100); NEUTROPHILS ABSOLUTE AUTO 5.24 K/mm3 (1.96-9.15); NEUTROPHILS PERCENT AUTO 71 % (41-73); NRBC ABSOLUTE 0.00 K/mm3 (0.00-0.02); NRBC Auto 0.0 /100 WBC (0.0-0.2); Platelet Count 230 K/mm3 (150-400); RDW Coefficient Variation 13.6 % (11.7-14.2); RDW Standard Deviation 49.8 fL (35.1-46.3)
[2025-04-20 12:34] LABS: Alanine Aminotransfer (ALT/SGP 21.0 U/L (12-78); Albumin, Blood 3.5 g/dL (3.4-5.0); Albumin/Globulin Ratio 0.9 (0.8-1.8); Anion Gap 7.0 mmol/L (3-11); Aspartate Aminotrans (AST/SGOT 15.0 U/L (12-37); Bilirubin, Total 0.5 mg/dL (0.1-1.0); Blood Urea Nitrogen 24.0 mg/dL (8-24); CO2, Blood 24.0 mmol/L (21-32); Calcium, Blood 9.6 mg/dL (8.5-10.1); Chloride, Blood 112.0 mmol/L (98-108); Creatinine, Blood 1.58 mg/dL (0.40-1.00); Globulin, Blood 4.0 g/dL (2.2-4.0); Glucose, Blood 149.0 mg/dL (70-99); Potassium, Blood 4.1 mmol/L (3.5-5.5); Sodium, Blood 139.0 mmol/L (136-145); Total Protein, Blood 7.5 g/dL (6.4-8.2)
[2025-04-20 12:46] LABS: Source, Urine Straight Cath
[2025-04-20 13:02] LABS: Bilirubin, Urine Neg (Neg); Color, Urine Yellow (P-Yellow); Glucose Qualitative, Urine Neg (Neg); Ketones, Urine Neg (Neg); Leukocyte Esterase, Urine Neg (Neg); Protein, Urine 1+ (Neg); Specific Gravity, Urine 1.020 (1.003-1.022); Urobilinogen, Urine NORM (Normal)
[2025-04-20 13:47] LABS: Red Blood Cells, Urine Not Seen /hpf (0-2); White Blood Cells, Urine 0-2 /hpf (0-5)
[2025-04-20 14:00] VITALS: BP 152/89
== END 2025-04-20 14:28 | disposition home or self-care (01) ==
LOC: ER 10:55
PROVIDERS: Emergency Medicine
DX: R45.1 Restlessness and agitation (principal); F01.511 Vascular dementia, unspecified severity, with agitation; M79.672 Pain in left foot; I12.9 Hypertensive chronic kidney disease with stage 1 through stage 4 chronic kidney disease, or unspecified chronic kidney disease; N18.30 Chronic kidney disease, stage 3 unspecified; Z91.040 Latex allergy status; Z88.2 Allergy status to sulfonamides; Z88.8 Allergy status to other drugs, medicaments and biological substances; Z79.899 Other long term (current) drug therapy
CPT/HCPCS: 70450; 73620; 80053; 81001; 85025; 93005; 93010; 99285-25; P9612

== ENCOUNTER 2025-05-15 00:34 | Emergency (ER) | payer MEDICARE ==
[~2025-05-15] VITALS: Ht 165.1 cm; Wt 88.5 kg
[2025-05-15 04:30] VITALS: BP 115/59
[2025-05-15] MEDS ORDERED: HYDROcodone 5-APAP 325 TAB PO ONE (04:50)
[2025-05-15] MEDS ORDERED: LIDO700A20 TOP ×2 (06:01→15:10)
[2025-05-15] MEDS ORDERED: HYDR1TAB94 PO ×2 (06:03→15:10)
== END 2025-05-15 06:18 | disposition home or self-care (01) ==
LOC: ER 00:34
DX: M79.672 Pain in left foot (principal); I10 Essential (primary) hypertension; E03.9 Hypothyroidism, unspecified; Z79.01 Long term (current) use of anticoagulants; Z79.899 Other long term (current) drug therapy; Z91.040 Latex allergy status; Z88.2 Allergy status to sulfonamides; Z91.048 Other nonmedicinal substance allergy status
CPT/HCPCS: 73630; 99283-25; A9270